=== PATIENT | female | born 1955 | race Caucasian/White ===

== ENCOUNTER → 2016-03-22 | Outpatient (CLI) | payer BC ==
--- NOTE | 2016-03-23 10:36 | MM ---
Reason for exam: screening (asymptomatic). Last mammogram was performed 1 year ago. History: Patient is postmenopausal, has history of other cancer at age 55, has history of endometrial cancer at age 45, has history of ovarian cancer at age 45, and is nulliparous. Family history of breast cancer in sister at age 56. Took estrogen for 3 years 6 months beginning at age 45. Physical Findings: A clinical breast exam by your physician is recommended on an annual basis and results should be correlated with mammographic findings. MG Screening Mammo w CAD Bilateral CC and MLO view(s) were taken. Prior study comparison: March 14, 2015, bilateral MG screening mammo w CAD. February 26, 2014, bilateral MG screening mammo w CAD. February 19, 2013, bilateral digital screening mammo w/CAD. There are scattered fibroglandular densities. Finding: There are typically benign round calcifications in both breasts. There is no discrete abnormality. ASSESSMENT: Benign, BI-RAD 2 RECOMMENDATION: Routine screening mammogram of both breasts in 1 year.
== END | disposition home or self-care (01) ==
LOC: RADMAMWWP 12:20
PROVIDERS: ATTEND Family Medicine
DX: Z12.31 Encounter for screening mammogram for malignant neoplasm of breast (principal)

== ENCOUNTER → 2016-03-30 | Outpatient (CLI) | payer BC ==
[~2016-03-30] MED LIST: ATROPINE SULFATE 0.1 MG/ML 10ML SYRINGE ONE; DOBUTamine DRIP for NUC MED 500 MG in DEXTROSE/WATER 1 250ML.BAG IV ONE; METOPROLOL TARTRATE 5 MG/5 ML VIAL IVP ONE
--- NOTE | 2016-03-30 10:25 | ECHOS ---
DATE OF SERVICE: 03/30/2016 AGE: 61Y SEX: F HT: 5'3" WT: 182 lbs. Protocol Erwin: Others: Dobutamine Stress Echo Stage: Dur. of Exercise: *Heart Rate Blood Pressure *Rest: 88 Rest: 110/69 * *Max. Achieved: 139 Maximum BP: 204/54 85% PMHR: 134 100% PMHR: 158 *METS: INDICATIONS OF THE STUDY: Chest pain. MEDICATIONS: STRESS DATA: Pre-testing physical examination showed heart rate of 88, pressure is 110/69 mmHg. Baseline EKG showed sinus mechanism with nonspecific changes in the inferior leads and inferolateral leads. Dobutamine infusion at a dose of 10 mcg/kg per minute was started and increased to 20 mcg/kg per minute per protocol. We gave the patient 0.5 mg of atropine to enhance the heart rate. With the dobutamine and atropine, the patient achieved a max heart rate of 139, which is about 89% of maximum predicted heart rate. Maximum blood pressure was 204/54 mmHg. Clinically, the patient did not experience any symptoms of chest pain or discomfort during the testing or in the recovery period. The EKG showed about [address] segment changes. The changes resolved on recovery. ECHOCARDIOGRAM IMAGES: On echocardiogram images from parasternal long axis view, parasternal short axis view, apical 4 chamber view and apical 2 chamber view were obtained at baseline images, at low-dose dobutamine infusion, at peak heart rate, as well as on recovery. I could not see any evidence of wall motion abnormalities consistent with ischemia. CONCLUSION: 1. Mild EKG changes in response to dobutamine, did not meet the criteria for ischemia and consistent of [address] segment changes likely represents the ( ) of the baseline EKG changes. 2. There is no evidence of any wall motion abnormalities consistent with ischemia.
== END ==
LOC: RADNMMAIN 08:51
PROVIDERS: ATTEND Surgery
DX: R91.8 Other nonspecific abnormal finding of lung field (principal)
CPT/HCPCS: 93017; 93350; J1250

== ENCOUNTER 2016-07-06 12:55 | Day surgery (SDC) | payer BC ==
[2016-07-04 08:53] VITALS: BMI 28.1
--- NOTE | 2016-07-06 08:00 | P.GSHP ---
History of Present Illness H&P Date: 07/06/16 CHIEF COMPLAINT: Lung cancer HISTORY OF PRESENT ILLNESS: The patient is a 61-year-old male diagnosed with lung cancer. She needs a Mediport placement for chemotherapy. PAST MEDICAL HISTORY: See list PAST SURGICAL HISTORY: See list CURRENT MEDICATIONS: See list. ALLERGIES: See list. SOCIAL HISTORY: No active tobacco or alcohol use. FAMILY HISTORY: Noncontributory. REVIEW OF ORGAN SYSTEMS: CONSTITUTIONAL: Has weight loss. PHYSICAL EXAMINATION: Vital signs: Stable GENERAL: Well developed and in no acute distress. Pleasant. HEENT: No sclera icterus. Extraocular movements grossly intact. Moist buccal mucosa. Head is atraumatic, normocephalic. Hears conversational speech. No nasal drainage. NECK: Supple without lymphadenopathy. No JV distention. CHEST: Non-labored respirations and equal bilateral excursions. Has chest tube , right side. CARDIOVASCULAR: Regular rate and rhythm. Palpable 2+ radial pulses. ABDOMEN: Nontender. MUSCULOSKELETAL: No clubbing, cyanosis or edema. NEUROLOGIC: No focal or lateralizing signs. PSYCH: Appropriate affect. Alert and oriented to person, place and time. ASSESSMENT: 1. Lung cancer, left. 2. Need for chemotherapeutic access. PLAN: 1. Agree with Port-A-Cath placement. Past Medical History Past Medical History: Cancer, Deep Vein Thrombosis (DVT), Hyperlipidemia, Hypertension, Pulmonary Embolus (PE), Rheumatoid Arthritis (RA) Additional Past Medical History / Comment(s): lung cancer, PE/DVT 2002, hx vaginal cancer, anemia, currently getting chemo for lung cancer, hx ovarian and cervical cancer, uses oxygen at night History of Any Multi-Drug Resistant Organisms: None Reported Past Surgical History: Hysterectomy, Orthopedic Surgery Additional Past Surgical History / Comment(s): drainage tube under rt breast for lung, ileostomy, left shoulder rotator cuff, vaginal surgery for cancer/ volvectomy, lung biopsy, Past Anesthesia/Blood Transfusion Reactions: No Reported Reaction Past Psychological History: No Psychological Hx Reported Smoking Status: Never smoker Past Alcohol Use History: Rare Past Drug Use History: None Reported - Past Family History Sister(s) Family Medical History: Cancer Medications and Allergies Home Medications Medication Instructions Recorded Confirmed Type Acetaminophen-Codeine 300-30mg 1 - 2 tab PO Q4-6H PRN 07/04/16 07/04/16 History [Tylenol #3] Atenolol [Tenormin] 50 mg PO 1700 07/04/16 07/04/16 History Cyanocobalamin [Vitamin B-12] 1,000 mcg PO DAILY 07/04/16 07/04/16 History Ezetimibe/Simvastatin [Vytorin 1 tab PO 1700 07/04/16 07/04/16 History 10-20 mg Tablet] Gabapentin [Neurontin] 100 mg PO BID 07/04/16 07/04/16 History LORazepam [Ativan] 0.5 - 1 mg PO Q4-6H PRN 07/04/16 07/04/16 History Losartan/Hydrochlorothiazide 1 each PO QAM 07/04/16 07/04/16 History [Hyzaar 50-12.5 Tablet] Multivitamins, Thera [Multivitamin 1 tab PO DAILY 07/04/16 07/04/16 History (formulary)] Allergies Allergy/AdvReac Type Severity Reaction Status Date / Time Sulfa (Sulfonamide Allergy Rash/Hives Verified 07/04/16 08:39 Antibiotics)
[~2016-07-06 12:55] MED LIST changes: -ATROPINE SULFATE 0.1 MG/ML 10ML SYRINGE ONE; +DEXAMETHASONE SOD PHOSPHATE 10 MG/ML 1 ML VIAL IV ONE; -DOBUTamine DRIP for NUC MED 500 MG in DEXTROSE/WATER 1 250ML.BAG IV ONE; +HYDROmorphone 1 MG/ML 1 ML SYRINGE IVP PRN; +LACTATED RINGERS 1,000 ML IV SCH; -METOPROLOL TARTRATE 5 MG/5 ML VIAL IVP ONE; +MIDAZOLAM 2 MG/2 ML VIAL IV PRN; +ONDANSETRON 4 MG/2 ML VIAL IVP ONE; +SCOPOLAMINE 1.5MG/72HR PATCH TRANSDERM ONE; +ceFAZolin 2 GM in SODIUM CHLORIDE 0.9% 100 ML IVPB ONE
[2016-07-06 13:34] VITALS: RESP 16; TEMP 986
[2016-07-06] MEDS ORDERED: LIDOCAINE 1% 20 ML VIAL (10MG/ML) FOR IV START INTRADERMA ONE (13:42)
[2016-07-06] MEDS ORDERED: LIDOCAINE 1% INJ 10MG/ML (20 ML MDV) ONE (16:27)
[2016-07-06] MEDS ORDERED: fentaNYL (PF) 50 MCG/ML 2 ML AMP ONE (16:27)
[2016-07-06] MEDS ORDERED: PROPOFOL 10 MG/ML 20 ML VIAL IV ONE (16:27)
[2016-07-06] MEDS ORDERED: KETAMINE 10 MG/ML 20 ML VIAL ONE (16:27)
[2016-07-06] MEDS ORDERED: MIDAZOLAM 2 MG/2 ML VIAL ONE (16:27)
[2016-07-06] MEDS ORDERED: HEPARIN SODIUM,PORCINE 100 UNIT/ML 5 ML VIAL IV ONE (16:51)
[2016-07-06] MEDS ORDERED: HEPARIN SODIUM,PORCINE 10,000 UNIT/ML 1 ML VIAL IV ONE (16:52)
[2016-07-06] MEDS ORDERED: LIDOCAINE (PF) 10 MG/ML 2 ML VIAL SQ ONE (16:52)
--- NOTE | 2016-07-06 17:27 | P.OP ---
Date of Procedure: 07/06/16 Preoperative Diagnosis: Postoperative Diagnosis: Procedure(s) Performed: Implants: Indications for Procedure: Operative Findings: Description of Procedure: SURGEON: BECKY JAVIER MD FAMILY PROTECTION SPECIALIST: None. PREOPERATIVE DIAGNOSES: 1. History of lung cancer, right. 2. Need for chemotherapeutic access. 3. Personal history of right thoracostomy tube. POSTOPERATIVE DIAGNOSES: 1. History of lung cancer, right. 2. Need for chemotherapeutic access. 3. Personal history of right thoracostomy tube. PROCEDURES PERFORMED: 1. Ultrasound guided central venous access of the right internal jugular venous vein. 2. Fluoroscopic guidance for central venous access right internal jugular vein 5 seconds. 3. Placement of right internal jugular power port 6 Slovenian by Bard. ANESTHESIA: IV sedation with 20 mL 1% lidocaine. ESTIMATED BLOOD LOSS: 5 mL. SPECIMENS REMOVED: None. COMPLICATIONS: None. INDICATIONS: The patient is a 61-year-old female with lung cancer. She presents for chemotherapeutic access. Benefits and risks of surgical intervention were described including bleeding, infection, mechanical problems with his port. Informed consent was obtained. DESCRIPTION OR PROCEDURE: Patient was brought into the operating room, laid in supine position. After adequate IV sedation, the chest and right neck were prepped and draped in a standard sterile fashion including the shoulder with ChloraPrep. Timeout protocol was confirmed with the surgical team regarding the patient's name, procedure to be performed including preoperative medications for which she received IV antibiotics. Bilateral SCDs were placed. An ultrasound was used to capture views of the right internal jugular vein including right carotid artery, which was patent and without thrombus along its course. The right IJ was then localized using anesthetic for the skin. A 16 Slovenian needle was used to access the IJ. Threading was without difficultly as the needle was advanced into the IJ with dark nonpulsatile venous blood. A J-wire was placed under fluoroscopic guidance. Two fingerbreadths distal to the clavicle, on the lateral third, a transverse 1.5 to 2 cm incision was deepened into the skin after localizing the skin. A pocket was created for the port. The port on the back table was flushed with heparinized saline and then attached to the catheter tubing. An adapter was fastened to the actual port site over the tubing. The port easily had fit snug into the pocket. A subcutaneous tunneler was placed along the open end of the tubing and brought out through the separate stab incision. Fluoroscopic guidance confirmed no kinking along the tubing and the port site. Next, the J-wire was exchanged for a catheter sheath for which the tubing was cut to 18 cm and then advanced through the catheter sheath. The Peel-away sheath was then removed and the tubing was secured at the junction of the superior vena cava as well as the right atrium. This was all done under fluoroscopic guidance for a total of 5 seconds. Easy pullback as well as return and aspiration was obtained of the port site. The skin incision was closed using layers using 3-0 Vicryl for the subcu followed by 4-0 Monocryl in a running subcuticular fashion. At the stick site this was also reapproximated using 4-0 Monocryl. The incisions were covered with gauze and CHG Tegaderm. A total of 20 mL of local anesthetic was placed. At the end of the procedure, needle, sponge, and instrument count was verified correct by ophthalmic surgical assistant. Heparin lock of 5 mL was placed. The patient was awoken and pain free and taken to the second stage postanesthesia care unit. The patient tolerated the procedure well. FINDINGS: 1. No thrombus encountered along the right carotid artery or internal jugular vein. 2. Access of the right internal jugular vein under ultrasound guidance. 3. Fluoroscopy of 5 seconds. 4. Final fluoroscopic image confirmed no mechanical kink of the port site or at the junction at the skin puncture site. Plan - Discharge Summary Discharge Medication List Acetaminophen-Codeine 300-30mg [Tylenol #3] 1 - 2 tab PO Q4-6H PRN 07/04/16 [ History] Atenolol [Tenormin] 50 mg PO 169907/04/16 [History] Cyanocobalamin [Vitamin B-12] 1,000 mcg PO DAILY 07/04/16 [History] Ezetimibe/Simvastatin [Vytorin 10-20 mg Tablet] 1 tab PO 169907/04/16 [History] Gabapentin [Neurontin] 100 mg PO BID 07/04/16 [History] LORazepam [Ativan] 0.5 - 1 mg PO Q4-6H PRN 07/04/16 [History] Losartan/Hydrochlorothiazide [Hyzaar 50-12.5 Tablet] 1 each PO QAM 07/04/16 [ History] Multivitamins, Thera [Multivitamin (formulary)] 1 tab PO DAILY 07/04/16 [History ] Follow up Appointment(s)/Referral(s): Becky Javier MD [STAFF PHYSICIAN] - As Needed Patient Instructions/Handouts: Implanted Venous Access Port (GEN), How to Care for Your Implanted Venous Access Port (GEN) Activity/Diet/Wound Care/Special Instructions: REMOVE DRESSING BY 07/10/16. MAY SHOWER. Discharge Disposition: HOME SELF-CARE
--- NOTE | 2016-07-06 17:54 | XR ---
EXAMINATION TYPE: XR chest 1V confirm line [facility] DATE OF EXAM: 07/06/2016 5:47 PM COMPARISON: NONE INDICATION: Port placement TECHNIQUE: Single frontal view of the chest is obtained. FINDINGS: The heart size is normal. The pulmonary vasculature is normal. There is a small right pleural effusion. Some mild increased lung markings are on the left and right lungs. Correlate for pulmonary edema. Other etiologies are not excluded. Port is present on the right with the tip in the superior vena cava region. IMPRESSION: 1. No pneumothorax post right-sided port placement. Tip is in the proximal superior vena cava region. 2. Small right pleural effusion. 3. Clinical correlation recommended for early alveolar pulmonary edema.
--- NOTE | 2016-07-06 17:57 | FL ---
Fluoroscopy INDICATION: Pain FINDINGS: Fluoroscopy time: 1 seconds. Images obtained: 2. IMPRESSIONS: 1. Documentation of fluoroscopy.
[2016-07-06 18:05] VITALS: BP 130/76; PULSE 97
== END 2016-07-06 18:20 | disposition home or self-care (01) ==
LOC: OR 12:55
PROVIDERS: ATTEND Surgery Plastic and Reconstructive Surgery
DX: C34.91 Malignant neoplasm of unspecified part of right bronchus or lung (principal); E78.5 Hyperlipidemia, unspecified; I10 Essential (primary) hypertension; M06.9 Rheumatoid arthritis, unspecified; Z86.718 Personal history of other venous thrombosis and embolism; Z86.711 Personal history of pulmonary embolism; Z99.81 Dependence on supplemental oxygen; Z79.899 Other long term (current) drug therapy; Z88.2 Allergy status to sulfonamides
CPT/HCPCS: 77001; 36561; 76937; C1788; J2250; J2001 ×2; J1644; J1642; J1100; J0690; J2405; J3010; J2704

== ENCOUNTER → 2016-10-15 | Outpatient (CLI) | payer BC ==
[2016-10-15 08:24] LABS: Blood Urea Nitrogen 17 mg/dL (7-17); Non-African American GFR(MDRD) >60 (>60 ml/min/1.73 sqM)
--- NOTE | 2016-10-15 10:12 | CT ---
EXAMINATION TYPE: CT ChestAbdPelvis w con DATE OF EXAM: 10/15/2016 INDICATION: F/U Lung and Vulva CA, history of skin cancer COMPARISON: NONE CT DLP: 647.9 mGycm CONTRAST: Performed with Oral Contrast and with IV Contrast, patient injected with 100 mL of Omnipaque 300. TECHNIQUE: Axial images at 5 mm thick sections. Reconstructed images in the coronal plane. Delayed images through the kidneys. FINDINGS: CT CHEST: Portion of the thyroid visualized is normal. Small right and minimal left pleural effusion is present. There is diffuse infiltrates at the lung ba ses greater on the right. Atelectasis and pneumonia are within the differential. Underlying metastati c lesions are not excluded. There is a drainage catheter present within the right pleural cavity. No enlarged mediastinal or hilar adenopathy is evident. There is some shotty lymphadenopathy within t he superior mediastinum and pretracheal space. The ascending aorta diameter at the level of the main pulmonary artery is 3.3 cm. The main pulmonary artery diameter at the bifurcation is 2.[address] ABDOMEN: Liver: Normal Spleen: Normal Pancreas: Normal Adrenal glands: The adrenal glands are normal. Gallbladder: Normal Kidneys: No masses are evident. No hydronephrosis is present. Right ureter has some minimal prominen ce. No cysts are present. Delayed images were obtained through the kidneys, which remain unremarkabl e. Aorta: Vascular calcification is within the aorta. Inferior vena cava: Normal. There is a urostomy in the right upper anterior pelvis. CT PELVIS: Loops of bowel within the abdomen and pelvis are normal. There are loops of bowel which are incom pletely distended or lack oral contrast limiting their evaluation. Appendix: Normal as visualized. Urinary bladder: Absent. Small bowel urostomy appears to be present. Genitourinary structures: Uterus and ovaries are absent. Vaginal region is not well visualized. Osseous structures: Possible sclerotic metastasis is within the posterior medial right iliac wing mario suring 0.8 cm. Series 4 image 88. Smaller sclerotic areas within the contralateral left side. An melvin tional lesion is in the superior medial right iliac wing. Series 4 image 83. Note is made of facet de generative changes. There is a large sclerotic area on the superior right endplate of L5. L4 scleroti c metastasis is present. L3 sclerotic metastasis is present. L2 sclerotic metastasis is present. A ly tic area with sclerotic margins is within the L1 vertebral level anteriorly. Multiple additional smal l sclerotic metastases are within the lower thoracic spine. There is a possible metastatic lesion wit hin the posterior right greater trochanter. There is degenerative change of the sacroiliac joints. IMPRESSIONS: 1. Multiple sclerotic type metastases through the lumbar spine with some milder areas within the thor acic spine greater in the lower thoracic spine. 2. Small right and minimal left pleural effusion. Drainage catheters in the right pleural cavity. 3. Postsurgical changes with urostomy right lower quadrant.
== END ==
LOC: RADCTMAIN 07:12
PROVIDERS: ATTEND Internal Medicine Hematology & Oncology
DX: C79.49 Secondary malignant neoplasm of other parts of nervous system (principal); J91.0 Malignant pleural effusion
CPT/HCPCS: 82565; 84520; 71260; 74177; Q9967; J1642

== ENCOUNTER 2016-12-19 20:50 | Inpatient (IN) | payer BC ==
[2016-12-19] MEDS ORDERED: RX INFO: IV CONTRAST WAS GIVEN 1 EACH MISC MISCELLANE PRN (21:32)
--- NOTE | 2016-12-19 21:50 | ED ---
General Adult HPI - General Chief complaint: Shortness of Breath Stated complaint: Poss blood clots Time Seen by Provider: 12/19/16 21:07 Source: patient, RN notes reviewed, old records reviewed Mode of arrival: wheelchair Limitations: no limitations - History of Present Illness Initial comments: 61-year-old female presents with 1 week of worsening dyspnea. Patient had recent diagnosis of lung cancer, completed chemotherapy in August of this year. Patient states that over the past week she has had increased difficulty breathing and cough. Cough was initially productive of clear sputum which has progressed to ayon sputum. Patient denies fever or chills. Does complain of unilateral leg swelling. This has been present for several years. Patient was called by her physician at [facility] with CT evidence of a blood clot in her leg and pelvis. These records will be obtained. Patient denies chest pain. She denies runny nose or throat pain. Denies abdominal pain. Denies nausea vomiting. - Related Data Home Medications Medication Instructions Recorded Confirmed Acetaminophen-Codeine 300-30mg 1 - 2 tab PO Q4-6H PRN 07/04/16 12/19/16 [Tylenol #3] Atenolol [Tenormin] 50 mg PO HS 07/04/16 12/19/16 Ezetimibe/Simvastatin [Vytorin 1 tab PO HS 07/04/16 12/19/16 10-20 mg Tablet] LORazepam [Ativan] 0.5 - 1 mg PO Q4-6H PRN 07/04/16 12/19/16 Losartan/Hydrochlorothiazide 1 tab PO DAILY 07/04/16 12/19/16 [Hyzaar 50-12.5 Tablet] Multivitamins, Thera [Multivitamin 1 tab PO DAILY 07/04/16 12/19/16 (formulary)] Gabapentin [Neurontin] 600 mg PO TID 12/19/16 12/19/16 Magnesium(Unknown Dose) 1 tab PO BID 12/19/16 12/19/16 Vitamin B Complex 1 cap PO BID 12/19/16 12/19/16 Zinc 50 mg PO DAILY 12/19/16 12/19/16 Allergies Allergy/AdvReac Type Severity Reaction Status Date / Time Sulfa (Sulfonamide Allergy Rash/Hives Verified 12/19/16 22:10 Antibiotics) Review of Systems ROS Statement: Those systems with pertinent positive or pertinent negative responses have been documented in the HPI. ROS Other: All systems not noted in ROS Statement are negative. Past Medical History Past Medical History: Cancer, Deep Vein Thrombosis (DVT), Hyperlipidemia, Hypertension, Pulmonary Embolus (PE), Rheumatoid Arthritis (RA) Additional Past Medical History / Comment(s): lung cancer, PE/DVT 2002, hx vaginal cancer, anemia, hx ovarian and cervical cancer, uses oxygen at night History of Any Multi-Drug Resistant Organisms: None Reported Past Surgical History: Hysterectomy, Orthopedic Surgery Additional Past Surgical History / Comment(s): drainage tube under rt breast for lung, ileostomy, left shoulder rotator cuff, vaginal surgery for cancer/ volvectomy, lung biopsy, Past Anesthesia/Blood Transfusion Reactions: No Reported Reaction Past Psychological History: No Psychological Hx Reported Smoking Status: Never smoker Past Alcohol Use History: Rare Past Drug Use History: None Reported - Past Family History Sister(s) Family Medical History: Cancer General Exam Limitations: no limitations General appearance: alert, in no apparent distress Head exam: Present: atraumatic, normocephalic Eye exam: Present: normal appearance, PERRL ENT exam: Present: normal exam Neck exam: Present: normal inspection. Absent: tenderness, meningismus Respiratory exam: Present: respiratory distress (Moderate respiratory distress) , rhonchi (Started rhonchi, good air entry). Absent: wheezes, rales Cardiovascular Exam: Present: regular rate, normal rhythm GI/Abdominal exam: Present: soft. Absent: distended, tenderness Extremities exam: Present: normal inspection, pedal edema (Left lower extremity swelling, with trace pitting edema), other. Absent: calf tenderness Neurological exam: Present: alert, oriented X3, CN II-XII intact. Absent: motor sensory deficit Psychiatric exam: Present: normal affect, normal mood Skin exam: Present: warm, dry, intact. Absent: cyanosis, diaphoretic Course Vital Signs 12/19/16 12/19/16 12/19/16 20:57 21:41 22:55 Temperature 99.3 F Pulse Rate 87 87 86 Respiratory 20 18 16 Rate Blood Pressure 108/59 95/51 O2 Sat by Pulse 88 L 97 97 Oximetry EKG Findings - EKG Comments: EKG Findings:: EKG shows normal sinus rhythm, ventricular rate 85, KS interval 170, QRS duration 76, QTC [address] segment elevation or T wave inversion in V2 and V3 Medical Decision Making - Medical Decision Making 61-year-old female presenting with 1 week worsening dyspnea and productive cough. He was able to talk with Dr. Briones at [facility]. She states that patient's case was reviewed at tumor Board, they felt there may be a DVT in the femoral vein is from a computed tomography scan in September. Given the worsening dyspnea it was recommended the patient come in for evaluation of pulmonary embolism. CT angiography was obtained, this is negative for pulmonary embolism, shows extensive pulmonary infiltrates, concern for ARDS. Patient's vital signs remained stable, she does require supplemental oxygen. Patient's diagnosis was cancer with metastases to lung. Chemotherapy was completed in July of this year. Computed tomography scan findings, may be related to pneumonia, although there is some concern this could be recurrent cancer. Patient will be admitted on IV antibiotics and steroids. Pulmonology and oncology will be placed on consult. Diagnosis: Bilateral extensive pulmonary infiltrates with hypoxia. - Lab Data Result diagrams: 12/19/16 22:16 12/19/16 22:16 Lab Results 12/19/16 12/19/16 12/19/16 Range/Units 22:16 22:16 22:16 WBC 5.6 (3.8-10.6) k/uL RBC 3.70 L (3.80-5.40) m/uL Hgb 11.9 (11.4-16.0) gm/dL Hct 38.8 (34.0-46.0) % MCV 104.9 H (80.0-100.0) fL MCH 32.0 (25.0-35.0) pg MCHC 30.6 L (31.0-37.0) g/dL RDW 13.3 (11.5-15.5) % Plt Count 170 (150-450) k/uL Neutrophils % 77 % Lymphocytes % 13 % Monocytes % 8 % Eosinophils % 1 % Basophils % 0 % Neutrophils # 4.3 (1.3-7.7) k/uL Lymphocytes # 0.7 L (1.0-4.8) k/uL Monocytes # 0.4 (0-1.0) k/uL Eosinophils # 0.0 (0-0.7) k/uL Basophils # 0.0 (0-0.2) k/uL Hypochromasia Slight Macrocytosis Slight PT 10.7 (9.0-12.0) sec INR 1.1 (<1.2) APTT 23.4 (22.0-30.0) sec Sodium 136 L (137-145) mmol/L Potassium 3.7 (3.5-5.1) mmol/L Chloride 96 L (98-107) mmol/L Carbon Dioxide 30 (22-30) mmol/L Anion Gap 10 mmol/L BUN 14 (7-17) mg/dL Creatinine 1.00 (0.52-1.04) mg/dL Est GFR (MDRD) Af Amer >60 (>60 ml/min/1.73 sqM) Est GFR (MDRD) Non-Af 56 (>60 ml/min/1.73 sqM) Glucose 101 H (74-99) mg/dL Plasma Lactic Acid Alex (0.7-2.0) mmol/L Calcium 9.4 (8.4-10.2) mg/dL Magnesium 2.2 (1.6-2.3) mg/dL Total Bilirubin 0.4 (0.2-1.3) mg/dL AST 38 H (14-36) U/L ALT 37 (9-52) U/L Alkaline Phosphatase 108 (38-126) U/L Total Creatine Kinase (30-135) U/L CK-MB (CK-2) (0.0-2.4) ng/mL CK-MB (CK-2) Rel Index Troponin I (0.000-0.034) ng/mL Total Protein 6.7 (6.3-8.2) g/dL Albumin 3.8 (3.5-5.0) g/dL 12/19/16 12/19/16 Range/Units 22:16 22:16 WBC (3.8-10.6) k/uL RBC (3.80-5.40) m/uL Hgb (11.4-16.0) gm/dL Hct (34.0-46.0) % MCV (80.0-100.0) fL MCH (25.0-35.0) pg MCHC (31.0-37.0) g/dL RDW (11.5-15.5) % Plt Count (150-450) k/uL Neutrophils % % Lymphocytes % % Monocytes % % Eosinophils % % Basophils % % Neutrophils # (1.3-7.7) k/uL Lymphocytes # (1.0-4.8) k/uL Monocytes # (0-1.0) k/uL Eosinophils # (0-0.7) k/uL Basophils # (0-0.2) k/uL Hypochromasia Macrocytosis PT (9.0-12.0) sec INR (<1.2) APTT (22.0-30.0) sec Sodium (137-145) mmol/L Potassium (3.5-5.1) mmol/L Chloride (98-107) mmol/L Carbon Dioxide (22-30) mmol/L Anion Gap mmol/L BUN (7-17) mg/dL Creatinine (0.52-1.04) mg/dL Est GFR (MDRD) Af Amer (>60 ml/min/1.73 sqM) Est GFR (MDRD) Non-Af (>60 ml/min/1.73 sqM) Glucose (74-99) mg/dL Plasma Lactic Acid Alex 1.1 (0.7-2.0) mmol/L Calcium (8.4-10.2) mg/dL Magnesium (1.6-2.3) mg/dL Total Bilirubin (0.2-1.3) mg/dL AST (14-36) U/L ALT (9-52) U/L Alkaline Phosphatase (38-126) U/L Total Creatine Kinase 80 (30-135) U/L CK-MB (CK-2) 5.3 H* (0.0-2.4) ng/mL CK-MB (CK-2) Rel Index 6.6 Troponin I <0.012 (0.000-0.034) ng/mL Total Protein (6.3-8.2) g/dL Albumin (3.5-5.0) g/dL Disposition Clinical Impression: Healthcare-associated pneumonia, Atypical pneumonia Disposition: ADMITTED IP TO THIS [facility] Condition: Stable Referrals: Inder Greco MD [Primary Care Provider] - 1-2 days Decision to Admit Reason: Admit from EC Decision Date: 12/19/16 Decision Time: 23:38
[2016-12-19 22:38] LABS: Basophils % (A) 0 %; CH 32.4; Eosinophils % (A) 1 %; HCT 38.8 % (34.0-46.0); HDW 2.52; HGB 11.9 gm/dL (11.4-16.0); Hypochromasia Slight; Luc % (Auto) 2; Lymphocytes # (A) 0.7 k/uL (1.0-4.8); Lymphocytes % (A) 13 %; MCHC 30.6 g/dL (31.0-37.0); MCV 104.9 fL (80.0-100.0); Macrocytosis Slight; Mean Platelet Volume 7.8; Monocytes # (A) 0.4 k/uL (0-1.0); Monocytes % (A) 8 %; Neutrophils # (A) 4.3 k/uL (1.3-7.7); Neutrophils % (A) 77 %; RDW 13.3 % (11.5-15.5); WBC 5.6 k/uL (3.8-10.6); WBC (Perox) 5.88
[2016-12-19 22:46] LABS: INR 1.1 (<1.2); Partial Thromboplastin Time 23.4 sec (22.0-30.0); Prothrombin Time 10.7 sec (9.0-12.0)
[2016-12-19 22:52] LABS: ALT 37 U/L (9-52); AST 38 U/L (14-36); Alkaline Phosphatase 108 U/L (38-126); Anion Gap 10 mmol/L; Blood Urea Nitrogen 14 mg/dL (7-17); Calcium 9.4 mg/dL (8.4-10.2); Carbon Dioxide 30 mmol/L (22-30); Chloride 96 mmol/L (98-107); Glucose 101 mg/dL (74-99); Magnesium 2.2 mg/dL (1.6-2.3); Non-African American GFR(MDRD) 56 (>60 ml/min/1.73 sqM); Potassium 3.7 mmol/L (3.5-5.1); Sodium 136 mmol/L (137-145); Total Bilirubin 0.4 mg/dL (0.2-1.3); Total Protein 6.7 g/dL (6.3-8.2)
[2016-12-19 22:58] LABS: Creatine Kinase 80 U/L (30-135)
[2016-12-19] MEDS: SODIUM CHLORIDE 0.9% 1,000 ML IV SCH (23:08)
[2016-12-19 23:11] LABS: Troponin I <0.012 ng/mL (0.000-0.034)
--- NOTE | 2016-12-19 23:12 | CT ---
EXAMINATION TYPE: CT angio chest DATE OF EXAM: 12/19/2016 11:05 PM COMPARISON: NONE HISTORY: R/O PE, FREDDIE CT DLP: 163.20 mGycm Automated exposure control for dose reduction was used. CONTRAST: CTA scan of the thorax is performed with IV Contrast, patient injected with 60 mL of Omnipaque 350, p ulmonary embolism protocol. There are 3-D post processed images.. FINDINGS: There are bilateral pleural effusions. There is extensive reticular nodular infiltrates throughout th e lungs. I see no filling defects in the pulmonary arteries. There is no evidence of aortic dissectio n. Heart appears slightly enlarged. There is spurring in the thoracic spine. IMPRESSION: NO EVIDENCE OF PULMONARY EMBOLISM. BILATERAL PLEURAL EFFUSION WITH EXTENSIVE PULMONARY INFILTRATES. T HERE IS COALESCENT PULMONARY INFILTRATE IN BOTH LUNGS. THERE IS SIGNIFICANT PROGRESSION OF THE AIRSPA CE DISEASE COMPARED TO LAST EXAM OF 10/15/2016. THIS PROBABLY RELATES TO INFLAMMATORY DISEASE. CONSIDE R THE POSSIBILITY OF RDS.
[2016-12-19 23:14] LABS: Creatine Kinase MB 5.3 ng/mL (0.0-2.4)
[2016-12-19] MEDS ORDERED: NALOXONE 0.4 MG/ML 1 ML VIAL IV PRN (23:48)
[2016-12-19] MEDS ORDERED: IPRATROPIUM-ALBUTEROL 3 ML NEB INHALATION PRN (23:51)
[2016-12-20 00:30] VITALS: BMI 25.4
[2016-12-20] MEDS ORDERED: LEVOFLOXACIN 250MG-D5W PMX 500 MG in DEXTROSE/WATER 1 50ML.BAG IVPB SCH (01:00)
[2016-12-20] MEDS ORDERED: LEVOFLOXACIN 500MG-D5W PMX 500 MG in DEXTROSE/WATER 1 100ML.BAG IVPB SCH (01:00)
[2016-12-20] MEDS: PIPERACILLIN-TAZOBACTAM 3.375 GM in DEXTROSE/WATER 1 50ML.BAG IVPB SCH ×2 (07:49→16:33)
[2016-12-20] MEDS: predniSONE 50 MG TAB PO SCH (08:01)
[2016-12-20] MEDS: Acetaminophen-Codeine 300-30mg TAB PO PRN ×2 (08:03→22:24)
[2016-12-20 08:29] LABS: Basophils % (A) 0 %; CH 32.7; CHCM 31.8; Eosinophils % (A) 0 %; HCT 38.9 % (34.0-46.0); HDW 2.59; HGB 12.4 gm/dL (11.4-16.0); Hypochromasia Slight; Luc % (Auto) 2; Lymphocytes # (A) 0.6 k/uL (1.0-4.8); Lymphocytes % (A) 12 %; MCH 32.9 pg (25.0-35.0); MCHC 31.9 g/dL (31.0-37.0); MCV 103.2 fL (80.0-100.0); Macrocytosis Slight; Mean Platelet Volume 7.4; Monocytes # (A) 0.4 k/uL (0-1.0); Monocytes % (A) 9 %; Neutrophils # (A) 3.8 k/uL (1.3-7.7); Neutrophils % (A) 77 %; RBC 3.77 m/uL (3.80-5.40); RDW 13.7 % (11.5-15.5); WBC 4.9 k/uL (3.8-10.6); WBC (Perox) 5.12
[2016-12-20 08:46] LABS: ALT 26 U/L (9-52); AST 42 U/L (14-36); Alkaline Phosphatase 97 U/L (38-126); Anion Gap 13 mmol/L; Blood Urea Nitrogen 11 mg/dL (7-17); Calcium 9.5 mg/dL (8.4-10.2); Carbon Dioxide 27 mmol/L (22-30); Chloride 100 mmol/L (98-107); Glucose 86 mg/dL (74-99); Non-African American GFR(MDRD) >60 (>60 ml/min/1.73 sqM); Potassium 3.9 mmol/L (3.5-5.1); Sodium 140 mmol/L (137-145); Total Bilirubin 0.5 mg/dL (0.2-1.3); Total Protein 6.8 g/dL (6.3-8.2)
--- NOTE | 2016-12-20 09:06 | US ---
EXAMINATION TYPE: US venous doppler duplex LE LT DATE OF EXAM: 12/20/2016 7:03 AM COMPARISON: none CLINICAL HISTORY: possible DVT, history of DVT left leg SIDE PERFORMED: left TECHNIQUE: The lower extremity deep venous system is examined utilizing real time linear array sonog nima with graded compression, doppler sonography and color-flow sonography. VESSELS IMAGED: External Iliac Vein (EIV) Common Femoral Vein Deep Femoral Vein Greater Saphenous Vein * Femoral Vein Popliteal Vein Small Saphenous Vein * Proximal Calf Veins (* superficial vessels) Pitting edema, swelling in leg, vessels difficult to visualize. Left Leg: Thready flow from femoral v, through proximal calf v's, vessel small and not compressible from femoral v to proximal calf v's. Positive for DVT. IMPRESSION: 1. There is reduced flow involving the left lower extremity from the superficial femoral vein through the proximal calf veins reduced compressibility compatible with DVT. Findings may represent a compon ent of chronic DVT. Superimposed acute DVT in the differential diagnosis.
[2016-12-20] MEDS ORDERED: RX INFO: IV CONTRAST WAS GIVEN 1 EACH MISC MISCELLANE PRN (09:25)
[2016-12-20] MEDS ORDERED: LORazepam 0.5 MG TAB PO PRN (09:43)
[2016-12-20] MEDS: GABAPENTIN 300 MG CAP PO SCH ×3 (11:36→22:19)
[2016-12-20] MEDS: LOSARTAN-HCTZ 50-12.5 MG 1 EACH TAB PO SCH (11:36)
[2016-12-20] MEDS: ENOXAPARIN 60 MG/0.6 ML SYRINGE SQ SCH ×2 (16:32→22:18)
[2016-12-20] MEDS: SODIUM CHLORIDE 0.9% 1,000 ML IV SCH (16:32)
--- NOTE | 2016-12-20 16:56 | P.HPIM ---
History of Present Illness H&P Date: 12/20/16 Chief Complaint: Shortness of breath This is 61-year-old pleasant female patient of Dr. Maurice Greco. She recently was diagnosed to have metastatic lung carcinoma in May 14 this year after a tissue biopsy performed by Dr. Mendoza and Dr. Henderson surgeon at [facility]. He had a pulmonary nodule that comes and goes with size and repeat CAT scans were not significant for any pulmonary nodule that was identified, however with the difficulty in the diagnosis and the persistence of shortness of breath, patient was subsequently scoped by Dr. Irvin for which malignancy was identified thru bronchial washings. physicians are at a quandry as to the location of the malignancy as the CAT scan were not conclusive with her 10 month symptoms, she went to [facility] per referral from Dr. Murguia and was found to have stage 4 lung carcinoma. She received the first chemo of 6 tx last dose was 09/04/2016. 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 She also has history off of iron and cervical cancer, hypertension and hyperlipidemia, rheumatoid arthritis, chemotherapy-induced neuropathy lower extremities. She was admitted to the emergency room after she got a phone call from [facility] notifying her of her abnormal CAT scan findings that shows a clot somewhere this CAT scan was performed last August 2016, and was subsequently recommended to go to emergency room. She has shortness of breath, and chronic left lower extremity swelling. Emergency room CTA of the chest was performed that shows no evidence of pulmonary embolism, there is bilateral pleural effusion with extensive pulmonary infiltrates, this colitis since of pulmonary infiltrate in both lungs, significant progression of airspace disease compared to last exam , possibly related to inflammatory disease consider possibility of RDS. Venous Dopplers shows positive DVT, there is reduced flow in the superficial femoral vein through the proximal calf veins, findings may be represent component of acute DVT superimposed with chronic DVT Review of Systems Constitutional: Reports as per HPI, Denies anorexia, Denies chills, Denies chronic headaches, Denies chronic pain, Denies daytime sleepiness, Denies fatigue, Denies fever, Denies lethargy, Denies malaise, Denies night sweats, Denies poor appetite, Denies sweats, Denies weakness, Denies weight gain, Denies weight loss Cardiovascular: Reports as per HPI, Reports decreased exercise tolerance, Reports leg edema, Reports shortness of breath Respiratory: Reports cough, Reports cough with sputum, Denies as per HPI, Denies congestion, Denies dyspnea, Denies excessive sputum, Denies hemoptysis, Denies home oxygen, Denies pain, Denies pain on inspiration, Denies pleurisy, Denies respiratory infections, Denies sleep apnea, Denies snoring, Denies wheezing Gastrointestinal: Reports as per HPI, Denies abdominal pain, Denies belching, Denies bloating, Denies BRBPR, Denies change in bowel habits, Denies coffee ground emesis, Denies constipation, Denies diarrhea, Denies dyspepsia, Denies early satiety, Denies excessive gas, Denies heartburn, Denies hematemesis, Denies hematochezia, Denies indigestion, Denies jaundice, Denies lactose intolerance, Denies loss of appetite, Denies melena, Denies nausea, Denies vomiting Genitourinary: Reports as per HPI, Denies abnormal vaginal bleeding, Denies decreased libido, Denies difficulty conceiving, Denies difficulty voiding, Denies dysmenorrhea, Denies dyspareunia, Denies dysuria, Denies flank pain, Denies genital sores, Denies hematuria, Denies hot flashes, Denies incomplete emptying, Denies kidney stones, Denies menorrhagia, Denies mixed incontinence, Denies nocturia, Denies pelvic pain, Denies post void dribbling, Denies , Denies prolapse symptoms, Denies stress incontinence, Denies urge incontinence , Denies urgency, Denies urinary frequency, Denies vaginal discharge, Denies vaginal dryness, Denies vaginal itching, Denies vaginal odor Menstruation: Reports as per HPI, Denies amenorrhea, Denies amenorrhea on BC, Denies currently menstrual, Denies cycle < 21 days, Denies cycle > 35 days, Denies cycle variable, Denies menses 1-7 days, Denies menses 8 or > days, Denies menses variable, Denies period heavy, Denies period light, Denies period normal, Denies period spotting, Denies post hysterectomy, Denies postmenopausal , Denies premenarcheal Musculoskeletal: Reports as per HPI, Reports leg numbness/tingling, Denies arm numbness/tingling, Denies atrophy, Denies fractures, Denies frequent falls, Denies gait dysfunction, Denies hot joints, Denies limitation of motion, Denies loss of height, Denies low back pain, Denies morning stiffness, Denies muscle cramps, Denies muscle weakness, Denies myalgias, Denies neck pain, Denies neck stiffness, Denies prior amputations, Denies redness of joints, Denies shooting arm pain, Denies shooting leg pain Integumentary: Reports as per HPI, Denies acne, Denies boils, Denies brittle nails, Denies change in hair/nails, Denies color changes, Denies darkening of skin, Denies depigmentation, Denies dryness, Denies foot/leg ulcers, Denies growths, Denies hirsutism, Denies lesions, Denies onychomycosis, Denies pruritus , Denies rash, Denies sores, Denies striae, Denies unusual bruising, Denies wounds Neurological: Reports as per HPI, Denies aphasia, Denies ataxia, Denies balance difficulties, Denies burning pain, Denies change in mentation, Denies change in smell/taste, Denies change in speech, Denies confusion, Denies convulsions, Denies double vision, Denies gait dysfunction, Denies head injury, Denies headaches, Denies hearing difficulties, Denies lack of coordination, Denies loss of vision, Denies memory loss, Denies migraines, Denies motor disturbance, Denies numbness, Denies paralysis, Denies paresthesias, Denies seizures, Denies sensory deficit, Denies spasticity, Denies syncope, Denies tic, Denies tingling , Denies transient paralysis, Denies tremors, Denies vertigo, Denies weakness, Denies visual changes Psychiatric: Reports as per HPI, Denies anhedonia, Denies anxiety, Denies anxiety attacks, Denies change in appetite, Denies change in libido, Denies change in sleep habits, Denies confusion, Denies depression, Denies difficulty concentrating, Denies disorientation, Denies hallucinations, Denies hopelessness , Denies hypersomnia, Denies insomnia, Denies irritability, Denies memory loss, Denies mood swings, Denies paranoia, Denies sadness/tearfulness, Denies sleep disturbances, Denies suicidal ideation Endocrine: Reports as per HPI, Denies cold intolerance, Denies deepening of the voice, Denies excessive sweating, Denies excessive thirst, Denies fatigue, Denies flushing, Denies heat intolerance, Denies high blood sugars, Denies increase in ring/shoe/hat size, Denies low blood sugars, Denies nocturia, Denies palpitations, Denies polydipsia, Denies polyphagia, Denies polyuria, Denies proptosis, Denies recent glucocorticoid use, Denies thyroid mass, Denies weight change Hematologic/Lymphatic: Reports as per HPI, Denies easy bleeding, Denies easy bruising, Denies lymphadenopathy, Denies lymphedema, Denies thrombophilia Allergic/Immunologic: Reports as per HPI, Denies allergic rhinitis, Denies anaphylaxis, Denies angioedema, Denies gluten intolerance, Denies persistent infections, Denies seasonal allergies, Denies urticaria, Denies wheezing Past Medical History Past Medical History: Cancer, Deep Vein Thrombosis (DVT), Hyperlipidemia, Hypertension, Pulmonary Embolus (PE), Rheumatoid Arthritis (RA) Additional Past Medical History / Comment(s): lung cancer, PE/DVT 2002, hx vaginal cancer, anemia, hx ovarian and cervical cancer, uses oxygen at night History of Any Multi-Drug Resistant Organisms: None Reported Past Surgical History: Hysterectomy, Orthopedic Surgery Additional Past Surgical History / Comment(s): drainage tube under rt breast for lung, ileostomy, left shoulder rotator cuff, vaginal surgery for cancer/ volvectomy, lung biopsy, Past Anesthesia/Blood Transfusion Reactions: No Reported Reaction Past Psychological History: No Psychological Hx Reported Smoking Status: Never smoker Past Alcohol Use History: Rare Past Drug Use History: None Reported - Past Family History Sister(s) Family Medical History: Cancer (Breast cancer) Mother Family Medical History: Coronary Artery Disease (CAD) (takotsubo syndrome) Medications and Allergies Home Medications Medication Instructions Recorded Confirmed Type Acetaminophen-Codeine 300-30mg 1 - 2 tab PO Q4-6H PRN 07/04/16 12/19/16 History [Tylenol #3] Atenolol [Tenormin] 50 mg PO HS 07/04/16 12/19/16 History Ezetimibe/Simvastatin [Vytorin 1 tab PO HS 07/04/16 12/19/16 History 10-20 mg Tablet] LORazepam [Ativan] 0.5 - 1 mg PO Q4-6H PRN 07/04/16 12/19/16 History Losartan/Hydrochlorothiazide 1 tab PO DAILY 07/04/16 12/19/16 History [Hyzaar 50-12.5 Tablet] Multivitamins, Thera [Multivitamin 1 tab PO DAILY 07/04/16 12/19/16 History (formulary)] Gabapentin [Neurontin] 600 mg PO TID 12/19/16 12/19/16 History Magnesium(Unknown Dose) 1 tab PO BID 12/19/16 12/19/16 History Vitamin B Complex 1 cap PO BID 12/19/16 12/19/16 History Zinc 50 mg PO DAILY 12/19/16 12/19/16 History Allergies Allergy/AdvReac Type Severity Reaction Status Date / Time Sulfa (Sulfonamide Allergy Rash/Hives Verified 12/19/16 22:10 Antibiotics) Physical Exam Vitals: Vital Signs Temp Pulse Pulse Resp BP BP Pulse Ox 12/20/16 16:00 89 18 12/20/16 08:00 89 18 12/20/16 07:00 98.4 F 89 16 114/74 97 12/20/16 00:30 97.9 F 90 16 124/61 94 L 12/19/16 23:46 98.4 F 88 18 109/65 98 12/19/16 22:55 86 16 95/51 97 12/19/16 21:41 87 18 97 12/19/16 20:57 99.3 F 87 20 108/59 88 L Intake and Output 12/20/16 12/20/16 12/20/16 06:59 14:59 22:59 Output Total 200 200 Balance -200 -200 Output: Urine 200 200 Other: # Bowel Movements 1 1 Weight 65 kg - Constitutional General appearance: cooperative, no acute distress - EENT Eyes: anicteric sclerae, dentition normal, normal appearance ENT: NA/AT, normal oropharynx - Neck Neck: normal ROM - Respiratory Respiratory: bilateral: CTA, negative: diminished, dullness, rales - Cardiovascular Rhythm: regular Heart sounds: normal: S1, S2 Abnormal Heart Sounds: no systolic murmur, no diastolic murmur, no rub, no S3 Gallop, no S4 Gallop, no click, no other - Gastrointestinal General gastrointestinal: normal bowel sounds, soft - Integumentary Integumentary: decreased turgor, normal - Neurologic Neurologic: CNII-XII intact - Musculoskeletal Musculoskeletal: gait normal, strength equal bilaterally - Psychiatric Psychiatric: A&O x's 3, appropriate affect, intact judgment & insight Results CBC & Chem 7: 12/20/16 08:03 12/20/16 08:03 Labs: Abnormal Lab Results - Last 24 Hours (Table) 12/19/16 12/19/16 12/19/16 Range/Units 22:16 22:16 22:16 RBC 3.70 L (3.80-5.40) m/uL MCV 104.9 H (80.0-100.0) fL MCHC 30.6 L (31.0-37.0) g/dL Lymphocytes # 0.7 L (1.0-4.8) k/uL Sodium 136 L (137-145) mmol/L Chloride 96 L (98-107) mmol/L Glucose 101 H (74-99) mg/dL AST 38 H (14-36) U/L CK-MB (CK-2) 5.3 H* (0.0-2.4) ng/mL 12/20/16 12/20/16 Range/Units 08:03 08:03 RBC 3.77 L (3.80-5.40) m/uL MCV 103.2 H (80.0-100.0) fL MCHC (31.0-37.0) g/dL Lymphocytes # 0.6 L (1.0-4.8) k/uL Sodium (137-145) mmol/L Chloride (98-107) mmol/L Glucose (74-99) mg/dL AST 42 H (14-36) U/L CK-MB (CK-2) (0.0-2.4) ng/mL Laboratory Results WBC 4.9 k/uL (3.8-10.6) 12/20/16 08:03 RBC 3.77 m/uL (3.80-5.40) L 12/20/16 08:03 Hgb 12.4 gm/dL (11.4-16.0) 12/20/16 08:03 Hct 38.9 % (34.0-46.0) 12/20/16 08:03 MCV 103.2 fL (80.0-100.0) H 12/20/16 08:03 MCH 32.9 pg (25.0-35.0) 12/20/16 08:03 MCHC 31.9 g/dL (31.0-37.0) 12/20/16 08:03 RDW 13.7 % (11.5-15.5) 12/20/16 08:03 Plt Count 151 k/uL (150-450) 12/20/16 08:03 Neutrophils % 77 % 12/20/16 08:03 Lymphocytes % 12 % 12/20/16 08:03 Monocytes % 9 % 12/20/16 08:03 Eosinophils % 0 % 12/20/16 08:03 Basophils % 0 % 12/20/16 08:03 Neutrophils # 3.8 k/uL (1.3-7.7) 12/20/16 08:03 Lymphocytes # 0.6 k/uL (1.0-4.8) L 12/20/16 08:03 Monocytes # 0.4 k/uL (0-1.0) 12/20/16 08:03 Eosinophils # 0.0 k/uL (0-0.7) 12/20/16 08:03 Basophils # 0.0 k/uL (0-0.2) 12/20/16 08:03 Hypochromasia Slight 12/20/16 08:03 Macrocytosis Slight 12/20/16 08:03 PT 10.7 sec (9.0-12.0) 12/19/16 22:16 INR 1.1 (<1.2) 12/19/16 22:16 APTT 23.4 sec (22.0-30.0) 12/19/16 22:16 Sodium 140 mmol/L (137-145) 12/20/16 08:03 Potassium 3.9 mmol/L (3.5-5.1) 12/20/16 08:03 Chloride 100 mmol/L (98-107) 12/20/16 08:03 Carbon Dioxide 27 mmol/L (22-30) 12/20/16 08:03 Anion Gap 13 mmol/L 12/20/16 08:03 BUN 11 mg/dL (7-17) 12/20/16 08:03 Creatinine 0.85 mg/dL (0.52-1.04) 12/20/16 08:03 Est GFR (MDRD) Af Amer >60 (>60 ml/min/1.73 sqM) 12/20/16 08:03 Est GFR (MDRD) Non-Af >60 (>60 ml/min/1.73 sqM) 12/20/16 08:03 Glucose 86 mg/dL (74-99) 12/20/16 08:03 Plasma Lactic Acid Alex 1.1 mmol/L (0.7-2.0) 12/19/16 22:16 Calcium 9.5 mg/dL (8.4-10.2) 12/20/16 08:03 Magnesium 2.2 mg/dL (1.6-2.3) 12/19/16 22:16 Total Bilirubin 0.5 mg/dL (0.2-1.3) 12/20/16 08:03 AST 42 U/L (14-36) H 12/20/16 08:03 ALT 26 U/L (9-52) 12/20/16 08:03 Alkaline Phosphatase 97 U/L (38-126) 12/20/16 08:03 Total Creatine Kinase 80 U/L (30-135) 12/19/16 22:16 CK-MB (CK-2) 5.3 ng/mL (0.0-2.4) H* 12/19/16 22:16 CK-MB (CK-2) Rel Index 6.6 12/19/16 22:16 Troponin I <0.012 ng/mL (0.000-0.034) 12/19/16 22:16 NT-Pro-B Natriuret Pep 1320 pg/mL 12/19/16 22:16 Total Protein 6.8 g/dL (6.3-8.2) 12/20/16 08:03 Albumin 3.9 g/dL (3.5-5.0) 12/20/16 08:03 Thrombosis Risk Factor Assmnt - DVT/VTE Prophylaxis DVT/VTE Prophylaxis: Pharmacologic Prophylaxis ordered, Mechanical Prophylaxis ordered - Choose All That Apply Any of the Below Risk Factors Present?: Yes Each Factor Represents 1 point: Swollen legs (current) Each Risk Factor Represents 2 Points: Age 61-74 years Each Risk Factor Represents 3 Points: History of DVT/PE Thrombosis Risk Factor Assessment Total Risk Factor Score: 6 Thrombosis Risk Factor Assessment Level: High Risk Assessment and Plan Plan: 1. Bilateral pulmonary infiltrates representing possibility of postobstructive pneumonia against worsening of pulmonary infiltrates from stage IV lung carcinoma however clinically she does not present this way, however in view of her immunocompromised state and CAT scan findings, we'll going to treat her with Commit acquired pneumonia. Her last admission to any hospital facility was in August 2016 for her lung biopsy, patient is in consultation by Dr. Garcia, Dr. Chavis, Dr. Rodriguez. Patient was empirically started on Levaquin and Zosyn , sputum cultures to be obtained blood cultures patient was started on prednisone 50 mg daily 3 continue nebulizers 2. Abnormal CAT scan in August 2016 with suspicion off pulmonary emboli and DVT left side, patient was started on Lovenox 60 mg every 12 hours with transition to oral medications oncology following 3. Chronic hypoxemic respiratory failure currently requiring O2 at 2 , at home are maintained occasions supplementation to keep pulse ox over 90%. Echocardiogram to be done to evaluate for right ventricular strain and shortness of breath or confusion 3. Chemotherapy induced neuropathy on gabapentin 600 mg 3 times a day no changes made 4 Hypertension on losartan HCTZ 50/12.5 no changes made continue atenolol 50 mg at bedtime 5 Hyperlipidemia on Vytorin 10/20 daily 6 Prognosis currently guarded 7 GI prophylaxis 8 DVT prophylaxis currently on Centrahoma embolism treatment using Lovenox Expected length of stay 3 nights
--- NOTE | 2016-12-20 17:20 | P.CNPUL ---
<Nidia Spence M - Last Filed: 12/20/16 16:25> History of Present Illness Consult date: 12/20/16 Requesting physician: Trinh Conroy Reason for consult: dyspnea, cough, hypoxemia, DVT, abnormal CXR/CT Chief complaint: Shortness of breath, cough with production of parrish sputum History of present illness: Mago is a 61-year-old white female patient who presented to the emergency department on 12/19/2016 at approximately 2100 with complaint of one week's worth of increasing shortness of breath, hacky cough with production of initially clear sputum that turned ayon. She does have some underlying chronic dyspnea on exertion, she wears home O2 at bedtime at 2 L per nasal cannula, but her current level of dyspnea is increased from her baseline and significantly limited her level of activity. She denies having any fevers or chills at home. In addition, she has received a phone call from her DIRECT[employer] oncologist Dr. Bobby Powell from the [facility] yesterday in regards to CT evidence of a blood clot in her left leg and pelvis. Mago follows with Dr. Powell for her history of ovarian, cervical and vulvar cancer that was first diagnosed in [address] Chavarria. Most of her history is obtained from the patient and the patient's spouse, records were requested from the [facility] and Dr. Murguia. Patient had abnormal cervical Pap smears, underwent total abdominal hysterectomy in [address] Chavarria, during which abnormal ovarian growth was detected and removed. The pathology was later found to be malignant. 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 Around the same time in 2002 she had a pulmonary embolism and a DVT in her left leg for which she was treated with a 6 months course of Coumadin. She had also undergone radiation and chemo and finished her last round of chemo in November 2015. In February 2016 patient was referred to Dr. HENNY Henderson for her increasing shortness of breath, initially treated with antibiotics, steroids, with no improvement. Dr. Lezama performed a bronchoscopy with a biopsy, and had told the patient the pathology was positive for lung cancer. Patient subsequently got refer to the [facility] cardiothoracic surgeon Dr. Henderson we did a wedge resection which was positive for malignancy. Patient sees Dr. Murguia who has recommended continuation of chemotherapy. CT of chest on 12/19/2016 showed no evidence of pulmonary embolism, significant progression of the airspace disease compared to the last exam on 10/15/2016. Venous Doppler on 12/20/2016 was positive for reduced flow involving the left lower extremity from the superficial femoral vein. The findings could represent a component of chronic DVT. Patient is not currently on any anticoagulation. Evaluation patient is sitting up in bed, awake alert, in no acute distress. She is on 2 L, with O2 sat at 94-97%, she is afebrile, no significant cough, or sputum production noted. Lungs sounds are diminished. No wheezing, no rhonchi, no rales appreciated. A significant amount of swelling in the left lower leg, nonpitting. Patient states she has chronic swelling in her left leg related to lymphedema post extensive pelvic and vulvar resection due to history of cancers. Denies any significant discomfort at this time, states she is short of breath with exertion, is wearing her oxygen continuously compared to just at bedtime. No signs of a leukocytosis noted, no coagulopathy, no significant electrolyte abnormality. Her CK-MB was elevated at 5.3, troponin is negative, proBNP was elevated at 1320 on admission. She does complain of anterior chest wall tenderness, worse with palpation. Review of Systems All systems: negative Constitutional: Denies chills, Denies fever Eyes: denies blurred vision, denies pain Ears, nose, mouth and throat: Denies headache, Denies sore throat Cardiovascular: Denies chest pain, Denies shortness of breath Respiratory: Denies cough Gastrointestinal: Denies abdominal pain, Denies diarrhea, Denies nausea, Denies vomiting Genitourinary: Denies dysuria, Denies hematuria Musculoskeletal: Denies myalgias Integumentary: Denies pruritus, Denies rash Neurological: Denies numbness, Denies weakness Psychiatric: Denies anxiety, Denies depression Endocrine: Denies fatigue, Denies weight change Past Medical History Past Medical History: Cancer, Deep Vein Thrombosis (DVT), Hyperlipidemia, Hypertension, Pulmonary Embolus (PE), Rheumatoid Arthritis (RA) Additional Past Medical History / Comment(s): lung cancer, PE/DVT 2002, hx vaginal cancer, anemia, hx ovarian and cervical cancer, uses oxygen at night History of Any Multi-Drug Resistant Organisms: None Reported Past Surgical History: Hysterectomy, Orthopedic Surgery Additional Past Surgical History / Comment(s): drainage tube under rt breast for lung, ileostomy, left shoulder rotator cuff, vaginal surgery for cancer/ volvectomy, lung biopsy, Past Anesthesia/Blood Transfusion Reactions: No Reported Reaction Past Psychological History: No Psychological Hx Reported Smoking Status: Never smoker Past Alcohol Use History: Rare Past Drug Use History: None Reported - Past Family History Sister(s) Family Medical History: Cancer Medications and Allergies Home Medications Medication Instructions Recorded Confirmed Type Acetaminophen-Codeine 300-30mg 1 - 2 tab PO Q4-6H PRN 07/04/16 12/19/16 History [Tylenol #3] Atenolol [Tenormin] 50 mg PO HS 07/04/16 12/19/16 History Ezetimibe/Simvastatin [Vytorin 1 tab PO HS 07/04/16 12/19/16 History 10-20 mg Tablet] LORazepam [Ativan] 0.5 - 1 mg PO Q4-6H PRN 07/04/16 12/19/16 History Losartan/Hydrochlorothiazide 1 tab PO DAILY 07/04/16 12/19/16 History [Hyzaar 50-12.5 Tablet] Multivitamins, Thera [Multivitamin 1 tab PO DAILY 07/04/16 12/19/16 History (formulary)] Gabapentin [Neurontin] 600 mg PO TID 12/19/16 12/19/16 History Magnesium(Unknown Dose) 1 tab PO BID 12/19/16 12/19/16 History Vitamin B Complex 1 cap PO BID 12/19/16 12/19/16 History Zinc 50 mg PO DAILY 12/19/16 12/19/16 History Allergies Allergy/AdvReac Type Severity Reaction Status Date / Time Sulfa (Sulfonamide Allergy Rash/Hives Verified 12/19/16 22:10 Antibiotics) Physical Exam Vitals: Vital Signs Temp Pulse Pulse Resp BP BP Pulse Ox 12/20/16 08:00 89 18 12/20/16 07:00 98.4 F 89 16 114/74 97 12/20/16 00:30 97.9 F 90 16 124/61 94 L 12/19/16 23:46 98.4 F 88 18 109/65 98 12/19/16 22:55 86 16 95/51 97 12/19/16 21:41 87 18 97 12/19/16 20:57 99.3 F 87 20 108/59 88 L Intake and Output 12/20/16 12/20/16 12/20/16 06:59 14:59 22:59 Output Total 200 200 Balance -200 -200 Output: Urine 200 200 Other: # Bowel Movements 1 1 Weight 65 kg GENERAL EXAM: Alert, active, comfortable in no apparent distress. HEAD: Normocephalic/atraumatic. EYES: Normal reaction of pupils, equal size. Conjunctiva pink, sclera white. NOSE: Clear with pink turbinates. THROAT: No erythema or exudates. NECK: No masses, no JVD, no thyroid enlargement, no adenopathy. CHEST: No chest wall deformity. Symmetrical expansion. Chest wall is tender to palpation. LUNGS: Equal air entry with no crackles, wheeze, rhonchi or dullness. Diminished bilaterally CVS: Regular rate and rhythm, normal S1 and S2, no gallops, no murmurs, no rubs ABDOMEN: Soft, nontender. No hepatosplenomegaly, normal bowel sounds, no guarding or rigidity. EXTREMITIES: No clubbing, no cyanosis, 2+ pulses and upper and lower extremities. 2+ nonpitting left lower leg edema, no tenderness or redness in the posterior left calf MUSCULOSKELETAL: Muscle strength and tone normal. SPINE: No scoliosis or deformity SKIN: No rashes CENTRAL NERVOUS SYSTEM: Alert and oriented 3. No focal deficits, tone is normal in all 4 extremities. PSYCHIATRIC: Alert and oriented 3. Appropriate affect. Intact judgment and insight. Results - Laboratory Findings CBC and BMP: 12/20/16 08:03 12/20/16 08:03 PT/INR, D-dimer PT 10.7 sec (9.0-12.0) 12/19/16 22:16 INR 1.1 (<1.2) 12/19/16 22:16 Abnormal lab findings: Abnormal Labs 12/19/16 12/19/16 12/19/16 22:16 22:16 22:16 RBC 3.70 L MCV 104.9 H MCHC 30.6 L Lymphocytes # 0.7 L Sodium 136 L Chloride 96 L Glucose 101 H AST 38 H CK-MB (CK-2) 5.3 H* 12/20/16 12/20/16 08:03 08:03 RBC 3.77 L MCV 103.2 H MCHC Lymphocytes # 0.6 L Sodium Chloride Glucose AST 42 H CK-MB (CK-2) - Diagnostic Findings Chest x-ray: report reviewed CT scan - chest: report reviewed U/S of Legs: report reviewed Assessment and Plan Plan: Assessments: #1. Acute on chronic hypoxic respiratory failure related to extensive malignant metastasis to the lungs, possibly from primary site from cervical, ovarian and vulvar cancer. There is evidence of significant progression of airspace disease related to lung metastasis on the CTA from 12/19/2016 compared to the previous CT from 10/15/2016. No evidence of pulmonary embolism. Doubt pneumonia at this time. #2. Bilateral pleural effusions with extensive pulmonary infiltrates as evidenced on CTA chest from 12/19/2016 there is thought to be related to extensive metastasis to the lungs #3. History of ovarian, cervical, and vulvar cancer, with total abdominal hysterectomy and oophorectomy, extensive vulvar resection and placement of urostomy. Status post treatment with radiation and chemotherapy, last chemotherapy completed in November 2015 #4. History of pulmonary embolism in 2002 treated with Coumadin #5. History of left leg DVT in 2002, treated with 6 month course of Coumadin #6. Lifetime nonsmoker #7. History of left leg lymphedema, related to history of extensive pelvic resection due to malignancy #8. History of anemia #9. History of rheumatoid arthritis Plan: CTA chest, chest x-ray and the venous Doppler results and films were reviewed by Dr. Chavis. There is evidence of significant progression of airspace disease related to extensive lung metastasis, doubt presence of pneumonia at this time. Patient's dyspnea, and hypoxia is very likely to be attributed to the extensive metastatic process in the lungs. Agree with repeating the CT of the abdomen and pelvis. We are awaiting further input from oncology at this point regarding the treatment. Requested the records from the [facility] and Dr. Murguia's office. Further recommendations to follow. This was discussed with the patient and the patient's spouse. I performed a history & physical examination of the patient and discussed their management with my nurse practitioner, Nidia Spence. I reviewed the nurse practitioner's note and agree with the documented findings and plan of care. Lung sounds are positive for diffuse wheezes throughout the lung vaughn. The findings and the impression was discussed with the patient. I attest to the documentation by the nurse practitioner. Time with Patient: Greater than 30 <Leta Chavis - Last Filed: 12/20/16 19:24> Physical Exam Vitals: Vital Signs Temp Pulse Pulse Resp BP BP Pulse Ox 12/20/16 16:00 89 18 12/20/16 15:00 97.6 F 91 24 121/71 96 12/20/16 08:00 89 18 12/20/16 07:00 98.4 F 89 16 114/74 97 12/20/16 00:30 97.9 F 90 16 124/61 94 L 12/19/16 23:46 98.4 F 88 18 109/65 98 12/19/16 22:55 86 16 95/51 97 12/19/16 21:41 87 18 97 12/19/16 20:57 99.3 F 87 20 108/59 88 L Intake and Output 12/20/16 12/20/16 12/20/16 06:59 14:59 22:59 Output Total 200 200 Balance -200 -200 Output: Urine 200 200 Other: # Bowel Movements 1 1 Weight 65 kg Results - Laboratory Findings CBC and BMP: 12/20/16 08:03 12/20/16 08:03 PT/INR, D-dimer PT 10.7 sec (9.0-12.0) 12/19/16 22:16 INR 1.1 (<1.2) 12/19/16 22:16 Abnormal lab findings: Abnormal Labs 12/19/16 12/19/16 12/19/16 22:16 22:16 22:16 RBC 3.70 L MCV 104.9 H MCHC 30.6 L Lymphocytes # 0.7 L Sodium 136 L Chloride 96 L Glucose 101 H AST 38 H CK-MB (CK-2) 5.3 H* 12/20/16 12/20/16 08:03 08:03 RBC 3.77 L MCV 103.2 H MCHC Lymphocytes # 0.6 L Sodium Chloride Glucose AST 42 H CK-MB (CK-2) Assessment and Plan Plan: This is a joint evaluation that was done along with a nurse practitioner. I spent approximately an hour with this patient talking to her about her CAT scan findings. I also showed her the images and compared the most recent CAT scan of the chest that was done during this current admission to the one that was done back in September 2016. There is obvious progression in the course interstitial changes scattered throughout the lung vaughn bilaterally in addition to the irregular nodularity, the masslike consolidation and the persistent right-sided pleural effusion. There is obvious progression and the findings of the lung consistent with metastatic involvement from the primary cancer. This has been confirmed to be adenocarcinoma at [facility]. No evidence of pulmonary embolism. It is however worthwhile to put this patient on Lovenox knowing that the patient has bilateral lower extremity DVT and most recent ultrasound Doppler of the lower extremities suggestive of blood clots. Right-sided pleural effusion is not abnormal for thoracentesis at this point. Long-term prognosis poor based on obvious disease progression.
[2016-12-20] MEDS: PANTOPRAZOLE 40 MG/10 ML VIAL IVP SCH (17:30)
--- NOTE | 2016-12-20 17:48 | P.CONS ---
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 In 2002 she was diagnosed with invasive adenocarcinoma of the vagina, treated with vaginectomy at [facility], adjuvant radiation therapy in [place], completed 04/20. In 2013 she had vaginal recurrence that required anterior pelvic exanteration and creation of urostomy with ileal conduit. In Oct 2014 she had recurrence in vulva which required radical anterior hemivulvectomy at [facility]. She continued on follow up, 07/01/15 CT revealed bilateral small lung nodules, otherwise negative. The lung nodules were monitored and on 07/29/15 she underwent bronchoscopy and transbronchial biopsy, malignant cells found, recommendation for further evaluation, repeat bronchoscopy was not diagnostic, CT guided biopsy was sched but scan showed significant improvement in lung lesions, felt to be inflammatory and the biopsy was canceled. September 2015 pt had local recurrence of adenocarcinoma of the vulva treated with radical excision. She started concurrent chemoradiation with weekly cisplatin 12/03, completed radiation on 01/03. Follow up CT revealed non specific lung nodules again, follow up CT showed further progression of lung nodules and on 04/19/16 pt had MARY wedge resection, pathology positive for metastatic adenocarcinoma, consistent with primary vaginal cancer. Carboplatin/taxol/avastin treatment was started in April, CA125 was down to 54 in July, 6 cycles completed in August, CA125 was down to 34. 10/15/16 CT CAP revealed questionable sclerotic bone lesions. Pt had progressive B symptoms as well as dyspnea and peripheral neuropathy, she had pleurix drain placed and removed by [facility]. Pt was seen by Dr. Whittaker with CT scheduled for tomorrow, for if there was evidence of progressive disease then pt would have to consider treatment or comfort measures. Pt is SOB at rest, requires O2, can't take a deep breath, dry cough, no hemoptysis, pleuritic pain, she denies fever, nausea, chest pain, urostomy working well with clear yellow urine, denies bowel changes, her LLE is swollen on and off for for a few weeks, she denies any pain, bleeding. Review of Systems 10 point ROS is as stated in HPI Past Medical History Past Medical History: Cancer, Deep Vein Thrombosis (DVT), Hyperlipidemia, Hypertension, Pulmonary Embolus (PE), Rheumatoid Arthritis (RA) Additional Past Medical History / Comment(s): lung cancer, PE/DVT 2002, hx vaginal cancer, anemia, hx ovarian and cervical cancer, uses oxygen at night History of Any Multi-Drug Resistant Organisms: None Reported Past Surgical History: Hysterectomy, Orthopedic Surgery Additional Past Surgical History / Comment(s): drainage tube under rt breast for lung, ileostomy, left shoulder rotator cuff, vaginal surgery for cancer/ volvectomy, lung biopsy, Past Anesthesia/Blood Transfusion Reactions: No Reported Reaction Past Psychological History: No Psychological Hx Reported Smoking Status: Never smoker Past Alcohol Use History: Rare Past Drug Use History: None Reported - Past Family History Sister(s) Family Medical History: Cancer Mother Family Medical History: Coronary Artery Disease (CAD) (takotsubo syndrome) Medications and Allergies Home Medications Medication Instructions Recorded Confirmed Type Acetaminophen-Codeine 300-30mg 1 - 2 tab PO Q4-6H PRN 07/04/16 12/19/16 History [Tylenol #3] Atenolol [Tenormin] 50 mg PO HS 07/04/16 12/19/16 History Ezetimibe/Simvastatin [Vytorin 1 tab PO HS 07/04/16 12/19/16 History 10-20 mg Tablet] LORazepam [Ativan] 0.5 - 1 mg PO Q4-6H PRN 07/04/16 12/19/16 History Losartan/Hydrochlorothiazide 1 tab PO DAILY 07/04/16 12/19/16 History [Hyzaar 50-12.5 Tablet] Multivitamins, Thera [Multivitamin 1 tab PO DAILY 07/04/16 12/19/16 History (formulary)] Gabapentin [Neurontin] 600 mg PO TID 12/19/16 12/19/16 History Magnesium(Unknown Dose) 1 tab PO BID 12/19/16 12/19/16 History Vitamin B Complex 1 cap PO BID 12/19/16 12/19/16 History Zinc 50 mg PO DAILY 12/19/16 12/19/16 History Allergies Allergy/AdvReac Type Severity Reaction Status Date / Time Sulfa (Sulfonamide Allergy Rash/Hives Verified 12/19/16 22:10 Antibiotics) Physical Exam Vitals: Vital Signs Temp Pulse Pulse Resp BP BP Pulse Ox 12/20/16 00:30 97.9 F 90 16 124/61 94 L 12/19/16 23:46 98.4 F 88 18 109/65 98 12/19/16 22:55 86 16 95/51 97 12/19/16 21:41 87 18 97 12/19/16 20:57 99.3 F 87 20 108/59 88 L Intake and Output 12/19/16 12/20/16 12/20/16 22:59 06:59 14:59 Other: # Bowel Movements 1 Weight 65.771 kg 65 kg - Constitutional General appearance: average body habitus, cooperative, mild distress - EENT Eyes: anicteric sclerae, EOMI, normal appearance ENT: normal oropharynx - Neck Neck: no lymphadenopathy - Respiratory Respiratory: bilateral: diminished (shallow, rapid breaths) - Cardiovascular Heart sounds: normal: S1, S2 Abnormal Heart Sounds: systolic murmur leg Peripheral Edema: right: None, left: 2+ - Gastrointestinal General gastrointestinal: no absent bowel sounds, no decreased bowel sounds, distended, no hepatomegaly, no hyperactive bowel sounds, normal bowel sounds, no organomegaly, no rigid, no scaphoid, soft, no splenomegaly, no tenderness, no umbilical hernia, no ventral hernia - Integumentary Integumentary: normal turgor - Neurologic Neurologic: CNII-XII intact - Musculoskeletal Musculoskeletal: strength equal bilaterally - Psychiatric Psychiatric: A&O x's 3, appropriate affect, intact judgment & insight Results CBC & Chem 7: 12/20/16 08:03 12/20/16 08:03 Labs: Abnormal Lab Results - Last 24 Hours (Table) 12/19/16 12/19/16 12/19/16 Range/Units 22:16 22:16 22:16 RBC 3.70 L (3.80-5.40) m/uL MCV 104.9 H (80.0-100.0) fL MCHC 30.6 L (31.0-37.0) g/dL Lymphocytes # 0.7 L (1.0-4.8) k/uL Sodium 136 L (137-145) mmol/L Chloride 96 L (98-107) mmol/L Glucose 101 H (74-99) mg/dL AST 38 H (14-36) U/L CK-MB (CK-2) 5.3 H* (0.0-2.4) ng/mL CT scan - chest: report reviewed Venous US: report reviewed Assessment and Plan (1) Difficulty breathing Narrative/Plan: Pt being evaluated and treated by Pulmonary, on O2, abx, and supportive respiratory care Current Visit: Yes Status: Acute Priority: High Code(s): R06.89 - OTHER ABNORMALITIES OF BREATHING SNOMED Code(s): 471214302 (2) Gynecologic malignancy Narrative/Plan: CT was sched for tomorrow, it will be done inpatient. Treatment options, prognosis with and without treatment are questions the pt wants answered. We will follow up after scan and provide pt with this information. Cont best supportive treatment and care at this time Current Visit: Yes Status: Acute Priority: High Code(s): C57.9 - MALIGNANT NEOPLASM OF FEMALE GENITAL ORGAN, UNSPECIFIED SNOMED Code(s): 438491292 (3) DVT (deep venous thrombosis) Narrative/Plan: Pt has been started on lovenox BID. Current Visit: Yes Status: Acute Priority: High Code(s): I82.409 - ACUTE EMBOLISM AND THOMBOS UNSP DEEP VN UNSP LOWER EXTREMITY SNOMED Code(s): 784365768
[2016-12-20] MEDS ORDERED: ATORVASTATIN 10 MG TAB PO SCH (21:00)
[2016-12-20] MEDS ORDERED: EZETIMIBE 10 MG TAB PO SCH (21:00)
[2016-12-20] MEDS ORDERED: ATENOLOL 50 MG TAB PO SCH (21:00)
[2016-12-20] MEDS: B COMPLEX-VIT C-VIT E-ZINC 1 EACH TAB PO SCH (22:19)
[2016-12-21] MEDS: PIPERACILLIN-TAZOBACTAM 3.375 GM in DEXTROSE/WATER 1 50ML.BAG IVPB SCH ×3 (00:23→16:18)
[2016-12-21] MEDS ORDERED: LEVOFLOXACIN 500 MG TAB PO SCH ×2 (01:00→12:00)
[2016-12-21 06:34] LABS: Basophils % (A) 0 %; CH 31.5; CHCM 30.5; Eosinophils % (A) 0 %; HCT 34.9 % (34.0-46.0); HDW 2.33; HGB 10.9 gm/dL (11.4-16.0); Hypochromasia Moderate; Luc % (Auto) 2; Lymphocytes # (A) 0.7 k/uL (1.0-4.8); Lymphocytes % (A) 15 %; MCH 32.3 pg (25.0-35.0); MCHC 31.2 g/dL (31.0-37.0); MCV 103.5 fL (80.0-100.0); Macrocytosis Slight; Mean Platelet Volume 9.6; Monocytes # (A) 0.4 k/uL (0-1.0); Monocytes % (A) 9 %; Neutrophils # (A) 3.8 k/uL (1.3-7.7); Neutrophils % (A) 75 %; RBC 3.37 m/uL (3.80-5.40); RDW 14.6 % (11.5-15.5); WBC 5.1 k/uL (3.8-10.6); WBC (Perox) 5.05
[2016-12-21 06:58] LABS: ALT 28 U/L (9-52); AST 27 U/L (14-36); Alkaline Phosphatase 89 U/L (38-126); Anion Gap 9 mmol/L; Blood Urea Nitrogen 12 mg/dL (7-17); Carbon Dioxide 30 mmol/L (22-30); Chloride 102 mmol/L (98-107); Glucose 91 mg/dL (74-99); Non-African American GFR(MDRD) >60 (>60 ml/min/1.73 sqM); Potassium 3.8 mmol/L (3.5-5.1); Sodium 141 mmol/L (137-145); Total Bilirubin 0.3 mg/dL (0.2-1.3); Total Protein 6.1 g/dL (6.3-8.2)
[2016-12-21] MEDS: IOHEXOL 350 MG/ML 25 ML BOTTLE (ORAL USE) PO PRN ×2 (08:12→09:28)
[2016-12-21] MEDS ORDERED: NON-FORMULARY DRUG (Zinc [Zinc] 50 MG) PO SCH (09:00)
[2016-12-21] MEDS: SODIUM CHLORIDE 0.9% 1,000 ML IV SCH ×2 (09:31→16:14)
[2016-12-21] MEDS: B COMPLEX-VIT C-VIT E-ZINC 1 EACH TAB PO SCH (10:37)
[2016-12-21] MEDS: LOSARTAN-HCTZ 50-12.5 MG 1 EACH TAB PO SCH (10:38)
[2016-12-21] MEDS: ENOXAPARIN 60 MG/0.6 ML SYRINGE SQ SCH (10:38)
[2016-12-21] MEDS: predniSONE 50 MG TAB PO SCH (10:38)
[2016-12-21] MEDS: PANTOPRAZOLE 40 MG/10 ML VIAL IVP SCH (10:38)
[2016-12-21] MEDS: GABAPENTIN 300 MG CAP PO SCH ×2 (10:38→16:15)
--- NOTE | 2016-12-21 11:12 | P.CONS ---
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 Pap smears repeatedly came back with cancer despite treatment with a topical chemotherapy. She eventually had laser treatment to the vagina for which she didn't have repeat cancer found. There was 2 procedures to shorten the vagina and she seemed to do well for a time and 2 2013 when she noticed a pimple in the vaginal area which was diagnosed with cancer and patient ended up with urostomy. She did well for a couple years and then noticed another pimple which was diagnosed as cancer and her vagina and part of the vulva was removed and then about 10 months later she was again diagnosed with cancer and underwent a vulvectomy and chemotherapy treatment. One year ago she was diagnosed with left lower extremity lymphedema. She gives history that in the fall of 2015 she started having difficulty breathing for which she follows with Dr. HENNY Henderson and underwent [address] Lezama. She initially was told wrong washings were positive for lung cancer however the biopsy was negative. She saw Dr. Murguia and he was doubtful that she had cancer at that time but due to nodules found in CAT scan she went to [facility] and had a needle biopsy done and the nodules could not be located. She continue to follow with Dr. HENNY Henderson and was on nebulizer treatments and steroids and follow-up with him every couple weeks. Finally by [place] time 2015 he sent her to [facility] and she had an appointment in February 2016. They did a surgical lung biopsy performed by Dr. Henderson at [facility] on the left lung around the end of March and at the same time she developed a pleural effusion on the right side for which 1 L was drained. She was discharged home and shortly after that the surgeon, Dr. Henderson, and [facility] called and stated she had stage IV lung cancer and surgery was not an option. A few weeks later, she was seen at [facility] as she had fluid-filled on her right side and a drain was permanently placed which lasted for 5 months until drainage had stopped and this was removed in October. Patient started chemotherapy at the end of April. 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 Chemotherapy ended September 04 and she completed 6 treatments one dose every 21 days. During that time, her pulmonary doctor at [facility], Dr. Norton, placed her on oxygen at night and she was gradually able to be weaned off this and has not been using oxygen for a couple months. For the past week she has had increased shortness of breath at night and has started using oxygen again at night and during the day as needed such as after showering. She underwent a CAT scan of the chest abdomen and pelvis with contrast done on October 15 at [facility] ordered by Dr. Whittaker which revealed multiple sclerotic type metastasis through the lumbar spine with some milder areas within the thoracic spine and greater in the lower thoracic spine. Small right and minimal left pleural effusion. Drainage catheter in the right pleural cavity. Postsurgical changes with urostomy right lower quadrant. Patient took the disc of this CAT scan to her physician at [facility] on October 26 but they were unable to get to work in the computer at that time. She called back several times to get a report from them and did not hear anything until Saturday at 8 PM, [facility] called and suspected a blood clot and recommended that she come into the hospital for evaluation. In the meantime she had been seen by Dr. Whittaker 3 weeks ago and recommended maintenance chemotherapy if her physician, Dr. Powell, at [facility] who seemed to agree with this plan. Patient was seen in the emergency center. She was afebrile with white count of 5.1. Ultrasound of the left lower extremity showed reduced flow from the superficial femoral vein through the proximal calf veins compatible with DVT. Findings may represent a component of chronic DVT. Superimposed acute DVT in the differential. Patient does have history of a left lower extremity DVT and pulmonary embolism in 2003. CTA of the chest showed no evidence of pulmonary embolism. Bilateral pleural effusions with extensive pulmonary infiltrates. There is coalescent pulmonary infiltrate in both lungs. There is significant progression of the airspace disease compared to last exam of 10/15/2016. This probably relates to inflammatory disease. Continue possibility of RDS. Patient has been seen by Dr. Chavis and didn't compare results of CAT scans from September to present with concern for return of cancer since chemotherapy. No definite pulmonary embolism however. Patient is going for a repeat CAT scan today with contrast. She is currently on antibiotics in the form of Levaquin and Zosyn Review of Systems All systems: negative Constitutional: Reports fatigue, Denies chills, Denies fever Eyes: denies blurred vision, denies pain Ears, nose, mouth and throat: Denies dental pain, Denies headache, Denies mouth pain, Denies sore throat, Denies vertigo Cardiovascular: Reports decreased exercise tolerance, Reports dyspnea on exertion, Reports leg edema, Reports shortness of breath, Denies chest pain, Denies lightheadedness, Denies syncope Respiratory: Reports cough, Reports cough with sputum, Reports dyspnea, Reports home oxygen Gastrointestinal: Denies abdominal pain, Denies diarrhea, Denies nausea, Denies vomiting Genitourinary: Denies dysuria, Denies hematuria, Denies urgency, Denies urinary frequency Musculoskeletal: Denies myalgias Integumentary: Denies pruritus, Denies rash Neurological: Denies numbness, Denies weakness Psychiatric: Denies anxiety, Denies depression Endocrine: Denies fatigue, Denies weight change Past Medical History Past Medical History: Cancer, Deep Vein Thrombosis (DVT), Hyperlipidemia, Hypertension, Pulmonary Embolus (PE), Rheumatoid Arthritis (RA) Additional Past Medical History / Comment(s): lung cancer, PE/DVT 2002, hx uterine, ovarian, cervical, vaginal cancer, stage IV lung cancer, peripheral neuropathy secondary to chemotherapy, uses oxygen at night History of Any Multi-Drug Resistant Organisms: None Reported Past Surgical History: Hysterectomy, Orthopedic Surgery Additional Past Surgical History / Comment(s): drainage tube under rt breast for pleural effusion, ileostomy, bilateral shoulder rotator cuff, hysterectomy, shortening of the vaginal canal 2, removal of the vaginal and partial vulvectomy followed by complete vulvectomy, right IJ PwerPort placement, thoracentesis Past Anesthesia/Blood Transfusion Reactions: No Reported Reaction Past Psychological History: No Psychological Hx Reported Smoking Status: Never smoker Past Alcohol Use History: Rare Additional Past Alcohol Use History / Comment(s): Patient is a lifelong nonsmoker. She denies any medical marijuana, marijuana, street drug use. She drinks alcohol occasionally. She lives at home with her . 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 She enjoys gardening and crafts, making her own wine and has in the past enjoyed mowing the lawn. Past Drug Use History: None Reported - Past Family History Sister(s) Family Medical History: Cancer Mother Family Medical History: Coronary Artery Disease (CAD) (takotsubo syndrome) Medications and Allergies Home Medications Medication Instructions Recorded Confirmed Type Acetaminophen-Codeine 300-30mg 1 - 2 tab PO Q4-6H PRN 07/04/16 12/19/16 History [Tylenol w/codeine #3] Atenolol [Tenormin] 50 mg PO HS 07/04/16 12/19/16 History Ezetimibe/Simvastatin [Vytorin 1 tab PO HS 07/04/16 12/19/16 History 10-20 mg Tablet] LORazepam [Ativan] 0.5 - 1 mg PO Q4-6H PRN 07/04/16 12/19/16 History Losartan/Hydrochlorothiazide 1 tab PO DAILY 07/04/16 12/19/16 History [Hyzaar 50-12.5 Tablet] Multivitamins, Thera [Multivitamin 1 tab PO DAILY 07/04/16 12/19/16 History (formulary)] Gabapentin [Neurontin] 600 mg PO TID 12/19/16 12/19/16 History Magnesium(Unknown Dose) 1 tab PO BID 12/19/16 12/19/16 History Vitamin B Complex 1 cap PO BID 12/19/16 12/19/16 History Zinc 50 mg PO DAILY 12/19/16 12/19/16 History Rivaroxaban [Xarelto] 15 mg PO BID-W/MEALS #40 tab 12/21/16 Rx Rivaroxaban [Xarelto] 20 mg PO DAILY #30 tab 12/21/16 Rx Allergies Allergy/AdvReac Type Severity Reaction Status Date / Time Sulfa (Sulfonamide Allergy Rash/Hives Verified 12/19/16 22:10 Antibiotics) Physical Exam Vitals: Vital Signs Temp Pulse Resp BP BP Pulse Ox 12/21/16 07:00 98.5 F 86 16 114/70 99 12/20/16 23:00 97.4 F L 103 H 16 127/75 95 12/20/16 19:34 98.2 F 94 24 124/80 98 12/20/16 16:00 89 18 12/20/16 15:00 97.6 F 91 24 121/71 96 Intake and Output 12/20/16 12/21/16 12/21/16 22:59 06:59 14:59 Intake Total 225 1240 Output Total 200 600 Balance 25 640 Intake: Intake, IV Titration 225 650 Amount Piperacillin-Tazobactam 3 50 .375 gm In Dextrose/Water 1 50ml.bag @ 12.5 mls/hr IVPB Q8HR RYAN Rx#: [id number] Sodium Chloride 0.9% 1, 225 600 000 ml @ 75 mls/hr IV . [id number] RYAN Rx#:[id number] Oral 590 Output: Urine 200 600 Other: # Bowel Movements 1 Gen: This is a 61-year-old female. She is sitting up in bed and appears to be in no acute distress. No respiratory distress noted. HEENT: Head is atraumatic, normocephalic. Pupils equal, round. Sclerae is anicteric. Conjunctiva pink. Mucous members of the mouth are moist. No thrush noted. No lesions noted. Dentition is in good order. NECK: Supple. No JVD. No lymphadenopathy. No thyromegaly. LUNGS: Rhonchi in the bilateral bases and occasional expiratory wheeze. No intercostal retractions. HEART: Regular rate and rhythm. No murmur. ABDOMEN: Soft. Bowel sounds are present. No masses. No tenderness. Right lower quadrant ileostomy in place with clear corine urine. EXTREMITIES: No pedal edema. Left lower extremity lymphedema noted. No tenderness or redness. NEUROLOGICAL: Patient is awake, alert and oriented x3. Cranial nerves 2 through 12 are grossly intact. Results Results: Laboratory Results WBC 5.1 k/uL (3.8-10.6) 12/21/16 06:25 RBC 3.37 m/uL (3.80-5.40) L 12/21/16 06:25 Hgb 10.9 gm/dL (11.4-16.0) L 12/21/16 06:25 Hct 34.9 % (34.0-46.0) 12/21/16 06:25 MCV 103.5 fL (80.0-100.0) H 12/21/16 06:25 MCH 32.3 pg (25.0-35.0) 12/21/16 06:25 MCHC 31.2 g/dL (31.0-37.0) 12/21/16 06:25 RDW 14.6 % (11.5-15.5) 12/21/16 06:25 Plt Count 144 k/uL (150-450) L 12/21/16 06:25 Neutrophils % 75 % 12/21/16 06:25 Lymphocytes % 15 % 12/21/16 06:25 Monocytes % 9 % 12/21/16 06:25 Eosinophils % 0 % 12/21/16 06:25 Basophils % 0 % 12/21/16 06:25 Neutrophils # 3.8 k/uL (1.3-7.7) 12/21/16 06:25 Lymphocytes # 0.7 k/uL (1.0-4.8) L 12/21/16 06:25 Monocytes # 0.4 k/uL (0-1.0) 12/21/16 06:25 Eosinophils # 0.0 k/uL (0-0.7) 12/21/16 06:25 Basophils # 0.0 k/uL (0-0.2) 12/21/16 06:25 Hypochromasia Moderate 12/21/16 06:25 Macrocytosis Slight 12/21/16 06:25 PT 10.7 sec (9.0-12.0) 12/19/16 22:16 INR 1.1 (<1.2) 12/19/16 22:16 APTT 23.4 sec (22.0-30.0) 12/19/16 22:16 Sodium 141 mmol/L (137-145) 12/21/16 06:25 Potassium 3.8 mmol/L (3.5-5.1) 12/21/16 06:25 Chloride 102 mmol/L (98-107) 12/21/16 06:25 Carbon Dioxide 30 mmol/L (22-30) 12/21/16 06:25 Anion Gap 9 mmol/L 12/21/16 06:25 BUN 12 mg/dL (7-17) 12/21/16 06:25 Creatinine 0.86 mg/dL (0.52-1.04) 12/21/16 06:25 Est GFR (MDRD) Af Amer >60 (>60 ml/min/1.73 sqM) 12/21/16 06:25 Est GFR (MDRD) Non-Af >60 (>60 ml/min/1.73 sqM) 12/21/16 06:25 Glucose 91 mg/dL (74-99) 12/21/16 06:25 Plasma Lactic Acid Alex 1.1 mmol/L (0.7-2.0) 12/19/16 22:16 Calcium 9.0 mg/dL (8.4-10.2) 12/21/16 06:25 Magnesium 2.2 mg/dL (1.6-2.3) 12/19/16 22:16 Total Bilirubin 0.3 mg/dL (0.2-1.3) 12/21/16 06:25 AST 27 U/L (14-36) 12/21/16 06:25 ALT 28 U/L (9-52) 12/21/16 06:25 Alkaline Phosphatase 89 U/L (38-126) 12/21/16 06:25 Total Creatine Kinase 80 U/L (30-135) 12/19/16 22:16 CK-MB (CK-2) 5.3 ng/mL (0.0-2.4) H* 12/19/16 22:16 CK-MB (CK-2) Rel Index 6.6 12/19/16 22:16 Troponin I <0.012 ng/mL (0.000-0.034) 12/19/16 22:16 NT-Pro-B Natriuret Pep 1320 pg/mL 12/19/16 22:16 Total Protein 6.1 g/dL (6.3-8.2) L 12/21/16 06:25 Albumin 3.4 g/dL (3.5-5.0) L 12/21/16 06:25 CBC & Chem 7: 12/21/16 06:25 12/21/16 06:25 Labs: Abnormal Lab Results - Last 24 Hours (Table) 12/21/16 12/21/16 Range/Units 06:25 06:25 RBC 3.37 L (3.80-5.40) m/uL Hgb 10.9 L (11.4-16.0) gm/dL MCV 103.5 H (80.0-100.0) fL Plt Count 144 L (150-450) k/uL Lymphocytes # 0.7 L (1.0-4.8) k/uL Total Protein 6.1 L (6.3-8.2) g/dL Albumin 3.4 L (3.5-5.0) g/dL Microbiology - Last 24 Hours (Table) 12/19/16 22:16 Blood Culture - Preliminary Blood No Growth after 24 hours Assessment and Plan Plan: This is a 61-year-old female patient presented with increasing dyspnea with history of stage IV lung cancer. No sign of pulmonary embolism. However, left lower extremity is positive for a DVT which may be acute. Patient does have history of a left lower extremity DVT and PE in 2002. She is currently on antibiotics in the form of Levaquin and Zosyn . Antibiotics will not be necessary. Continue supportive care. Further recommendations as patient progresses. The above dictated assessment and findings were discussed with Dr. Rodriguez. The impression and plan of care have been directed as dictated. Connie Maravilla nurse practitioner acting as scribe for Dr. Rodriguez.
--- NOTE | 2016-12-21 11:53 | ECHOF ---
Referral Reason:SOB, PE MEASUREMENTS -------- HEIGHT: 160.0 cm WEIGHT: 64.9 kg BP: 127/75 IVSd: 1.0 cm (0.6 - 1.1) LVIDd: 3.0 cm (3.9 - 5.3) LVPWd: 0.9 cm (0.6 - 1.1) IVSs: 1.3 cm LVIDs: 2.3 cm LVPWs: 1.3 cm Ao Diam: 3.0 cm (2.0 - 3.7) AV Cusp: 1.7 cm (1.5 - 2.6) LA Diam: 2.8 cm (2.7 - 3.8) MV EXCURSION: 20.022 mm (> 18.000) MV EF SLOPE: 68 mm/s (70 - 150) EPSS: 0.8 cm MV E Femi: 0.80 m/s MV DecT: 208 ms MV A Femi: 0.76 m/s MV E/A Ratio: 1.06 RAP: 5.00 mmHg RVSP: 17.25 mmHg FINDINGS -------- Sinus rhythm. This was a technically good study. The left ventricular size is normal. There is mild concentric left ventricular hypertrophy. Overa ll left ventricular systolic function is normal with, an EF between 55 - 60 %. The right ventricle is normal in size and function. The left atrium is normal in size. The right atrium is normal in size. The aortic valve is trileaflet, and appears structurally normal. No aortic stenosis or regurgitation. The mitral valve is normal. There is trace mitral regurgitation. Trace tricuspid regurgitation present. The right ventricular systolic pressure, as measured by Dopp ler, is 17.25mmHg. There is no pulmonic regurgitation present. The aortic root size is normal. Normal inferior vena cava with normal inspiratory collapse consistent with estimated right atrial pre ssure of 5 mmHg. There is a trivial pericardial effusion present. CONCLUSIONS -------- 1. Sinus rhythm. 2. This was a technically good study. 3. There is mild concentric left ventricular hypertrophy. 4. Overall left ventricular systolic function is normal with, an EF between 55 - 60 %. 5. The left atrium is normal in size. 6. The aortic valve is trileaflet, and appears structurally normal. No aortic stenosis or regurgitati on. 7. There is trace mitral regurgitation. 8. Trace tricuspid regurgitation present. 9. The right ventricular systolic pressure, as measured by Doppler, is 17.25mmHg. 10. There is no pulmonic regurgitation present. 11. The aortic root size is normal. 12. Normal inferior vena cava with normal inspiratory collapse consistent with estimated right atrial pressure of 5 mmHg. 13. There is a trivial pericardial effusion present. TRAVEL WRITER: Courtney Castro RDCS
[2016-12-21] MEDS ORDERED: MULTIVITAMINS, THERA 1 EACH TAB PO SCH (12:00)
--- NOTE | 2016-12-21 12:08 | CT ---
EXAMINATION TYPE: CT ChestAbdPelvis w con DATE OF EXAM: 12/21/2016 COMPARISON: 12/19/2016 CT chest and 10/15/2016 CT chest, abdomen, and pelvis HISTORY: 61-year-old female malignancy progress study, pneumonia and lung cancer. Prior history state s vulvar cancer as well. TECHNIQUE: Contiguous axial scanning of the chest, abdomen, and pelvis performed with IV Contrast, pa tient injected with 100 mL of Omnipaque 300. Delayed images through the kidneys were obtained. Kan l/sagittal reconstructions performed. CT DLP: 597.9 mGycm Automated exposure control for dose reduction was used. FINDINGS: CHEST: The heart is upper limits of normal in size without pericardial effusion. The aorta is normal caliber with conventional branching anatomy. Mildly enlarged caliber to the main right and left pulmonary arteries at 2.8 and 2.5 cm, respectively , suggesting underlying pulmonary arterial hypertension. Scattered nonenlarged and a few borderline sized mediastinal lymph nodes are present, largest measuri ng 1 cm along the right paratracheal region, axial image 19. This is increased from 7 mm on 10/15/2016 . Right axillary lymph node is borderline in size at 1.3 cm, increased from 10/15/2016. A right-sided ch est wall injection port is present. The catheter tip is in the lower IJV. Redemonstrated extensive interstitial opacities throughout the lungs with confluent areas of consolid ation in the perihilar bronchovascular and subpleural regions of the mid to lower lungs, some of thes e areas having masslike appearance, for example, in the lower lobes axial image 37 and 39. Overall ap pearance is unchanged from 12/19/2016 but new or markedly progressed from 10/15/2016. Staple lines john g the lingula and peripheral left base suggests prior wedge resections Small right greater than left pleural effusions are unchanged from recent prior of 12/19/2016. ABDOMEN: A 1.3 cm hypodense lesion peripheral right hepatic lobe not clearly seen on 10/15/2016. No other focal liver lesions seen. Bile duct measures 1 cm in caliber appears increased from 10/07/2016. No distal o bstructing lesion is identified. Gallbladder shows no abnormal distention. Main portal vein is patent . 1.1 cm nodularity of the left adrenal gland there is slightly increased from 9 mm on 10/15/2016. Right adrenal gland, right kidney, spleen, and mildly atrophic pancreas show no gross evidence of bow el. There is slight asymmetric left-sided pelvicaliectasis and possible filling defect in the mid left ur eter, axial image 80. No dilated small bowel, free fluid, or free air. Oral contrast progressed to the proximal sigmoid colon. No pericolonic inflammatory change seen. Right lower quadrant ileostomy with diverting urostomy is redemonstrated. Mild diffuse anasarca-type change. No mesenteric or retroperitoneal lymphadenopathy seen. Pelvis: Patient is status post cystectomy. There is presacral edema with diffuse fat stranding throughout the intrapelvic fat probably relating to posttreatment change, relatively similar to 10/15/2016 There is asymmetric edema along the left thigh and some mild strandy edema also along the deeper fasc ial planes. Bones: Sclerotic foci in the posterior iliac bones upper and lower thoracic spine, and within the lumbar spi ne, and inferior sternal body are redemonstrated. No new lesions are identified. Degenerative changes throughout the lumbar spine. IMPRESSION: 1. CONTINUED SMALL RIGHT GREATER THAN LEFT PLEURAL EFFUSIONS WITH EXTENSIVE bilateral interstitial ch anges and masslike areas of consolidation especially in the lower lungs (unchanged from 12/19/2016 but largely new from 10/15/2016). Clinical correlation recommended for possible etiologies including mult ifocal pneumonia, pulmonary edema, drug reaction, and metastatic disease. 2. A 1.3 cm right axillary and 1 cm right paratracheal lymph node are increased in size from 7 but only borderline enlarged by CT size criteria. 3. A 1.3 cm right hepatic lobe lesion was not clearly seen on 10/15/2016 and could represent new hepat ic metastasis. Osteoblastic metastases are unchanged. 4. Right lower quadrant diverting urostomy status post cystectomy. There is slight asymmetric pelvica liectasis on the left and possible filling defect in the mid left ureter, axial image 80. Correlate f or any symptoms of renal colic and with urinalysis and urine cytology. 5. Left adrenal nodule slightly increased in size at 1.1 cm versus 9 mm on 10/15/2016. 6. Status post cystectomy. Extensive intrapelvic fat stranding and presacral edema is similar and may relate to posttreatment change. 7. Asymmetric soft tissue swelling of the visualized left thigh. If indicated, lower extremity Dopple r ultrasound can exclude the possibility of DVT.
--- NOTE | 2016-12-21 13:06 | P.PN ---
Subjective Progress Note Date: 12/21/16 Principal diagnosis: Acute on chronic hypoxic respiratory failure related to extensive malignant metastasis to the lungs Mago is a 61-year-old white female patient who presented to the emergency department on 12/19/2016 at approximately 2100 with complaint of one week's worth of increasing shortness of breath, hacky cough with production of initially clear sputum that turned ayon. She does have some underlying chronic dyspnea on exertion, she wears home O2 at bedtime at 2 L per nasal cannula, but her current level of dyspnea is increased from her baseline and significantly limited her level of activity. She denies having any fevers or chills at home. 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 Bobby Powell from the [facility] yesterday in regards to CT evidence of a blood clot in her left leg and pelvis. Mago follows with Dr. Powell for her history of ovarian, cervical and vulvar cancer that was first diagnosed in [address] Chavarria. Most of her history is obtained from the patient and the patient's spouse, records were requested from the [facility] and Dr. Murguia. Patient had abnormal cervical Pap smears, underwent total abdominal hysterectomy in [address] Chavarria, during which abnormal ovarian growth was detected and removed. The pathology was later found to be malignant. 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 Around the same time in 2002 she had a pulmonary embolism and a DVT in her left leg for which she was treated with a 6 months course of Coumadin. She had also undergone radiation and chemo and finished her last round of chemo in November 2015. In February 2016 patient was referred to Dr. HENNY Henderson for her increasing shortness of breath, initially treated with antibiotics, steroids, with no improvement. Dr. Lezama performed a bronchoscopy with a biopsy, and had told the patient the pathology was positive for lung cancer. Patient subsequently got refer to the [facility] cardiothoracic surgeon Dr. Henderson we did a wedge resection which was positive for malignancy. Patient sees Dr. Murguia who has recommended continuation of chemotherapy. CT of chest on 12/19/2016 showed no evidence of pulmonary embolism, significant progression of the airspace disease compared to the last exam on 10/15/2016. Venous Doppler on 12/20/2016 was positive for reduced flow involving the left lower extremity from the superficial femoral vein. The findings could represent a component of chronic DVT. Patient is not currently on any anticoagulation. Evaluation patient is sitting up in bed, awake alert, in no acute distress. She is on 2 L, with O2 sat at 94-97%, she is afebrile, no significant cough, or sputum production noted. Lungs sounds are diminished. No wheezing, no rhonchi, no rales appreciated. A significant amount of swelling in the left lower leg, nonpitting. Patient states she has chronic swelling in her left leg related to lymphedema post extensive pelvic and vulvar resection due to history of cancers. Denies any significant discomfort at this time, states she is short of breath with exertion, is wearing her oxygen continuously compared to just at bedtime. No signs of a leukocytosis noted, no coagulopathy, no significant electrolyte abnormality. Her CK-MB was elevated at 5.3, troponin is negative, proBNP was elevated at 1320 on admission. She does complain of anterior chest wall tenderness, worse with palpation. On 12/21/2016 patient is seen in follow-up, he is going down for CT of abdomen and pelvis. She remains on continuous oxygen at 2 L per nasal cannula with O2 sat from 95-99%. She states she is able to produce some sputum, which is now yellow in color. Lung sounds are positive for coarse bibasilar crackles. Patient's left lower leg edema seems to have improved, she has kept it elevated. No significant respiratory distress noted, no wheezing, or significant chest congestion. What culture shows no growth after 24 hours. Patient has been started on Lovenox 60 mg twice a day. Echocardiogram from 04/2016 was reviewed, EF is between 55-60%, with no evidence of pulmonary hypertension or significant valvular abnormality. The results of CT chest, abdomen and pelvis be reviewed by medical oncology, awaiting their input. Objective - Vital Signs Vital signs: Vital Signs Temp 98.5 F 12/21/16 07:00 Pulse 86 12/21/16 07:00 Resp 16 12/21/16 07:00 BP 114/70 12/21/16 07:00 Pulse Ox 99 12/21/16 07:00 Intake & Output 12/20/16 12/21/16 12/21/16 18:59 06:59 18:59 Intake Total 1465 Output Total 400 600 Balance -400 865 Intake: Intake, IV Titration 875 Amount Piperacillin-Tazobactam 3 50 .375 gm In Dextrose/Water 1 50ml.bag @ 12.5 mls/hr IVPB Q8HR [facility] Rx#: [id number] Sodium Chloride 0.9% 1, 825 000 ml @ 75 mls/hr IV . [id number] [facility] Rx#:[id number] Oral 590 Output: Urine 400 600 Other: # Bowel Movements 1 - Exam GENERAL EXAM: Alert, active, comfortable in no apparent distress. HEAD: Normocephalic/atraumatic. EYES: Normal reaction of pupils, equal size. Conjunctiva pink, sclera white. NOSE: Clear with pink turbinates. THROAT: No erythema or exudates. NECK: No masses, no JVD, no thyroid enlargement, no adenopathy. CHEST: No chest wall deformity. Symmetrical expansion. Chest wall is tender to palpation. LUNGS: Equal air entry with no crackles, wheeze, rhonchi or dullness. Diminished bilaterally CVS: Regular rate and rhythm, normal S1 and S2, no gallops, no murmurs, no rubs ABDOMEN: Soft, nontender. No hepatosplenomegaly, normal bowel sounds, no guarding or rigidity. EXTREMITIES: No clubbing, no cyanosis, 2+ pulses and upper and lower extremities. 2+ nonpitting left lower leg edema, no tenderness or redness in the posterior left calf MUSCULOSKELETAL: Muscle strength and tone normal. SPINE: No scoliosis or deformity SKIN: No rashes CENTRAL NERVOUS SYSTEM: Alert and oriented 3. No focal deficits, tone is normal in all 4 extremities. PSYCHIATRIC: Alert and oriented 3. Appropriate affect. Intact judgment and insig - Labs CBC & Chem 7: 12/21/16 06:25 12/21/16 06:25 Labs: Abnormal Lab Results - Last 24 Hours (Table) 12/21/16 12/21/16 Range/Units 06:25 06:25 RBC 3.37 L (3.80-5.40) m/uL Hgb 10.9 L (11.4-16.0) gm/dL MCV 103.5 H (80.0-100.0) fL Plt Count 144 L (150-450) k/uL Lymphocytes # 0.7 L (1.0-4.8) k/uL Total Protein 6.1 L (6.3-8.2) g/dL Albumin 3.4 L (3.5-5.0) g/dL Microbiology - Last 24 Hours (Table) 12/19/16 22:16 Blood Culture - Preliminary Blood No Growth after 24 hours Assessment and Plan Plan: Assessments: #1. Acute on chronic hypoxic respiratory failure related to extensive malignant metastasis to the lungs, possibly from primary site from cervical, ovarian and vulvar cancer. There is evidence of significant progression of airspace disease related to lung metastasis on the CTA from 12/19/2016 compared to the previous CT from 10/15/2016. No evidence of pulmonary embolism. Doubt pneumonia at this time. #2. Bilateral pleural effusions with extensive pulmonary infiltrates as evidenced on CTA chest from 12/19/2016 there is thought to be related to extensive metastasis to the lungs #3. History of ovarian, cervical, and vulvar cancer, with total abdominal hysterectomy and oophorectomy, extensive vulvar resection and placement of urostomy. Status post treatment with radiation and chemotherapy, last chemotherapy completed in November 2015 #4. History of pulmonary embolism in 2002 treated with Coumadin #5. History of left leg DVT in 2002, treated with 6 month course of Coumadin #6. Lifetime nonsmoker #7. History of left leg lymphedema, related to history of extensive pelvic resection due to malignancy #8. History of anemia #9. History of rheumatoid arthritis Plan: Oxygenation remained stable on 2 L per nasal cannula, no significant chest congestion, patient does have productive cough with yellow sputum. There is some improvement noted in the edema of the left lower leg . Today we started the patient on Lovenox 60 every 12 hours for the DVT in the left leg, possibly acute. CTA chest, chest x-ray and the venous Doppler results and films were reviewed by Dr. Chavis. There is evidence of significant progression of airspace disease related to extensive lung metastasis, doubt presence of pneumonia at this time. Patient's dyspnea, and hypoxia is very likely to be attributed to the extensive metastatic process in the lungs. CT chest, abdomen and pelvis results will be reviewed by medical oncology. Awaiting their input. Further recommendations to follow. No significant pleural effusion that needs to be drained to offer symptomatic relief the patient at this time. Continue to follow, further recommendations will be offered based on the clinical progression. I performed a history & physical examination of the patient and discussed their management with my nurse practitioner, Nidia Spence. I reviewed the nurse practitioner's note and agree with the documented findings and plan of care. Lung sounds are positive for bibasilar crackles. The findings and the impression was discussed with the patient. I attest to the documentation by the nurse practitioner. Time with Patient: Less than 30
--- NOTE | 2016-12-21 14:07 | P.PN ---
Subjective Progress Note Date: 12/21/16 This is 61-year-old pleasant female patient of Dr. Maurice Greco. She recently was diagnosed to have metastatic lung carcinoma in May 14 this year after a tissue biopsy performed by Dr. Mendoza and Dr. Henderson surgeon at [facility]. He had a pulmonary nodule that comes and goes with size and repeat CAT scans were not significant for any pulmonary nodule that was identified, however with the difficulty in the diagnosis and the persistence of shortness of breath, patient was subsequently scoped by Dr. Irvin for which malignancy was identified thru bronchial washings. physicians are at a quandry as to the location of the malignancy as the CAT scan were not conclusive with her 10 month symptoms, she went to [facility] per referral from Dr. Murguia and was found to have stage 4 lung carcinoma. She received the first chemo of 6 tx last dose was 09/04/2016. 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 She also has history off of iron and cervical cancer, hypertension and hyperlipidemia, rheumatoid arthritis, chemotherapy-induced neuropathy lower extremities. She was admitted to the emergency room after she got a phone call from [facility] notifying her of her abnormal CAT scan findings that shows a clot somewhere this CAT scan was performed last August 2016, and was subsequently recommended to go to emergency room. She has shortness of breath, and chronic left lower extremity swelling. Emergency room CTA of the chest was performed that shows no evidence of pulmonary embolism, there is bilateral pleural effusion with extensive pulmonary infiltrates, this colitis since of pulmonary infiltrate in both lungs, significant progression of airspace disease compared to last exam , possibly related to inflammatory disease consider possibility of RDS. Venous Dopplers shows positive DVT, there is reduced flow in the superficial femoral vein through the proximal calf veins, findings may be represent component of acute DVT superimposed with chronic DVT 12/21: Patient has been followed by Dr. Chavis and Dr. Rodriguez. Echocardiogram reveals EF of 55-60% with no pulmonary hypertension or significant valvular abnormality. She is undergone a repeat CAT scan of the chest, abdomen and pelvis which appears to be progression or recurrence of her lung cancer. 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 She does have a follow-up appointment set up with Dr. Whittaker on December 28. Objective - Vital Signs Vital signs: Vital Signs Temp 98.5 F 12/21/16 07:00 Pulse 86 12/21/16 07:00 Resp 16 12/21/16 07:00 BP 114/70 12/21/16 07:00 Pulse Ox 99 12/21/16 07:00 Intake & Output 12/20/16 12/21/16 12/21/16 18:59 06:59 18:59 Intake Total 1465 Output Total 400 600 Balance -400 865 Intake: Intake, IV Titration 875 Amount Piperacillin-Tazobactam 3 50 .375 gm In Dextrose/Water 1 50ml.bag @ 12.5 mls/hr IVPB Q8HR [facility] Rx#: [id number] Sodium Chloride 0.9% 1, 825 000 ml @ 75 mls/hr IV . [id number] [facility] Rx#:[id number] Oral 590 Output: Urine 400 600 Other: # Bowel Movements 1 - Exam General appearance: cooperative, no acute distress - EENT Eyes: anicteric sclerae, dentition normal, normal appearance ENT: NA/AT, normal oropharynx - Neck Neck: normal ROM - Respiratory Respiratory: bilateral: CTA, negative: diminished, dullness, rales - Cardiovascular Rhythm: regular Heart sounds: normal: S1, S2 Abnormal Heart Sounds: no systolic murmur, no diastolic murmur, no rub, no S3 Gallop, no S4 Gallop, no click, no other - Gastrointestinal General gastrointestinal: normal bowel sounds, soft - Integumentary Integumentary: decreased turgor, normal - Neurologic Neurologic: CNII-XII intact - Musculoskeletal Musculoskeletal: gait normal, strength equal bilaterally - Psychiatric Psychiatric: A&O x's 3, appropriate affect, intact judgment & insight - Labs CBC & Chem 7: 12/21/16 06:25 12/21/16 06:25 Labs: Abnormal Lab Results - Last 24 Hours (Table) 12/21/16 12/21/16 Range/Units 06:25 06:25 RBC 3.37 L (3.80-5.40) m/uL Hgb 10.9 L (11.4-16.0) gm/dL MCV 103.5 H (80.0-100.0) fL Plt Count 144 L (150-450) k/uL Lymphocytes # 0.7 L (1.0-4.8) k/uL Total Protein 6.1 L (6.3-8.2) g/dL Albumin 3.4 L (3.5-5.0) g/dL Microbiology - Last 24 Hours (Table) 12/19/16 22:16 Blood Culture - Preliminary Blood No Growth after 24 hours Assessment and Plan Plan: 1. Bilateral pulmonary infiltrates representing possibility of postobstructive pneumonia but most likely worsening of pulmonary infiltrates from stage IV lung carcinoma however clinically she does not present this way, however in view of her immunocompromised state and CAT scan reports reviewed. She is currently on Levaquin and Zosyn and awaiting Dr. Rodriguez decision whether she needs antibiotics. She has follow-up appointment set for next Saturday with Dr. Whittaker. 2. Abnormal CAT scan in August 2016 with suspicion off pulmonary emboli and DVT left side, patient was started on Lovenox 60 mg every 12 hours with transition to oral medications oncology following. PE has been ruled out by Dr. Chavis. 3. Chronic hypoxemic respiratory failure currently requiring O2 at 2 , at home are maintained occasions supplementation to keep pulse ox over 90%. Echocardiogram to be done to evaluate for right ventricular strain and shortness of breath or confusion 3. Chemotherapy induced neuropathy on gabapentin 600 mg 3 times a day no changes made 4 Hypertension on losartan HCTZ 50/12.5 no changes made continue atenolol 50 mg at bedtime 5 Hyperlipidemia on Vytorin 10/20 daily 6 Left lower extremity DVT. Patient will be transitioned from Lovenox to Xarelto. 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 7 GI prophylaxis 8 DVT prophylaxis currently on Lovenox transitioned to Xarelto Discharge plan: Home tomorrow Impression and plan of care have been directed as dictated by the signing physician. Connie Maravilla nurse practitioner acting as scribe for signing physician.
[2016-12-21 14:56] VITALS: BP 115/62; PULSE 92; TEMP 98.1
[2016-12-21 15:22] VITALS: RESP 25
[2016-12-21] MEDS: Acetaminophen-Codeine 300-30mg TAB PO PRN (16:13)
--- NOTE | 2016-12-21 16:40 | P.PN ---
Subjective Progress Note Date: 12/21/16 The patient continues to be short of breath. She is reasonably comfortable at rest on 2 L of oxygen but get short of breath quickly with exertion such as going to the bathroom. She denies any significant pain at this time. Objective - Vital Signs Vital signs: Vital Signs Temp 98.1 F 12/21/16 14:55 Pulse 92 12/21/16 14:55 Resp 25 H 12/21/16 15:22 BP 115/62 12/21/16 14:55 Pulse Ox 99 12/21/16 07:00 Intake & Output 12/20/16 12/21/16 12/21/16 18:59 06:59 18:59 Intake Total 1465 2210 Output Total 400 600 Balance -174 347 1858 Intake: Intake, IV Titration 875 650 Amount Piperacillin-Tazobactam 3 50 50 .375 gm In Dextrose/Water 1 50ml.bag @ 12.5 mls/hr IVPB Q8HR [facility] Rx#: [id number] Sodium Chloride 0.9% 1, 825 600 000 ml @ 75 mls/hr IV . [id number] [facility] Rx#:[id number] Oral 590 1560 Output: Urine 400 600 Other: # Bowel Movements 1 - Constitutional General appearance: Present: no acute distress - EENT Eyes: Present: EOMI, PERRLA ENT: Present: hearing grossly normal, normal oropharynx - Respiratory Respiratory: bilateral: diminished - Cardiovascular Rhythm: regular Heart sounds: normal: S1, S2 - Gastrointestinal General gastrointestinal: Present: normal bowel sounds, soft - Integumentary Integumentary: Present: normal - Neurologic Neurologic: Present: CNII-XII intact - Musculoskeletal Musculoskeletal: Present: generalized weakness - Labs CBC & Chem 7: 12/21/16 06:25 12/21/16 06:25 Labs: Abnormal Lab Results - Last 24 Hours (Table) 12/21/16 12/21/16 Range/Units 06:25 06:25 RBC 3.37 L (3.80-5.40) m/uL Hgb 10.9 L (11.4-16.0) gm/dL MCV 103.5 H (80.0-100.0) fL Plt Count 144 L (150-450) k/uL Lymphocytes # 0.7 L (1.0-4.8) k/uL Total Protein 6.1 L (6.3-8.2) g/dL Albumin 3.4 L (3.5-5.0) g/dL Microbiology - Last 24 Hours (Table) 12/19/16 22:16 Blood Culture - Preliminary Blood No Growth after 24 hours - Imaging and Cardiology CT scan - abdomen: report reviewed CT scan - chest: report reviewed CT scan - pelvis: report reviewed Assessment and Plan (1) Gynecologic malignancy Narrative/Plan: The patient has known metastatic 1 were cancer, and was recently on treatment with carboplatin, Taxol and Avastin. Based on her symptoms, there was concern for progression. Therefore outpatient CT chest abdomen and pelvis was performed here. This appears to show progression, especially in bilateral lung parenchyma with marked increase in confluent masslike opacities. There also appeared to be some progression in a mediastinal node, as well as possibly in in a liver lesion On the results, and implications were discussed in detail with the patient and her . This appears to represent progressive disease within a fairly short period of time after aggressive first-line chemotherapy combination. They were advised, that in this situation, there are no standard second line therapy with proven good efficacy. According to Dr. Whittaker, comfort care would be a reasonable option in case of progression. The same, and rationale for that were discussed in detail with them. They had various questions about possible second line therapies, as well as prognosis without treatment, and logistics regarding hospice. These were answered to the best of my ability. They do want to follow-up with Dr. Whittaker in the office, and will do so as an outpatient to discuss the above options. Current Visit: Yes Status: Acute Priority: High Code(s): C57.9 - MALIGNANT NEOPLASM OF FEMALE GENITAL ORGAN, UNSPECIFIED SNOMED Code(s): 168443700 (2) Difficulty breathing Narrative/Plan: Based on the computed tomography scan appearance and her clinical presentation , pneumonia has not been suspected by pulmonary medicine or ID. Case has been discussed with the ID service. IV antibiotics will be stopped. Her symptoms are felt to be due to progression of malignancy in the lungs Current Visit: Yes Status: Acute Priority: High Code(s): R06.89 - OTHER ABNORMALITIES OF BREATHING SNOMED Code(s): 294612553 (3) DVT (deep venous thrombosis) Narrative/Plan: The patient is on Xarelto and can be discharged on the same. Current Visit: Yes Status: Acute Priority: High Code(s): I82.409 - ACUTE EMBOLISM AND THOMBOS UNSP DEEP VN UNSP LOWER EXTREMITY SNOMED Code(s): 697266489 Plan: The patient is stable at rest on 2 L of oxygen. She has home oxygen, up to 5 L. Therefore from our standpoint she can be discharged home if okay with the admitting service and other consultants. She will follow-up with Dr. Whittaker in the office, according to her previously scheduled appointment.
[2016-12-21] MEDS ORDERED: RIVAROXABAN 15 MG TAB PO SCH (17:30)
--- NOTE | 2016-12-21 21:37 | P.CON ---
Consult Note - . 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 Pap smears repeatedly came back with cancer despite treatment with a topical chemotherapy. She eventually had laser treatment to the vagina for which she didn't have repeat cancer found. There was 2 procedures to shorten the vagina and she seemed to do well for a time and 2 2013 when she noticed a pimple in the vaginal area which was diagnosed with cancer and patient ended up with urostomy. She did well for a couple years and then noticed another pimple which was diagnosed as cancer and her vagina and part of the vulva was removed and then about 10 months later she was again diagnosed with cancer and underwent a vulvectomy and chemotherapy treatment. One year ago she was diagnosed with left lower extremity lymphedema. She gives history that in the fall of 2015 she started having difficulty breathing for which she follows with Dr. HENNY Henderson and underwent [address] Lezama. She initially was told wrong washings were positive for lung cancer however the biopsy was negative. She saw Dr. Murguia and he was doubtful that she had cancer at that time but due to nodules found in CAT scan she went to [facility] and had a needle biopsy done and the nodules could not be located. She continue to follow with Dr. HENNY Henderson and was on nebulizer treatments and steroids and follow-up with him every couple weeks. Finally by [place] time of 2015 he sent her to [facility] and she had an appointment in February 2016. They did a surgical lung biopsy performed by Dr. Henderson at [facility] on the left lung around the end of March and at the same time she developed a pleural effusion on the right side for which 1 L was drained. She was discharged home and shortly after that the surgeon, Dr. Henderson, and [facility] called and stated she had stage IV lung cancer and surgery was not an option. A few weeks later, she was seen at [facility] as she had fluid-filled on her right side and a drain was permanently placed which lasted for 5 months until drainage had stopped and this was removed in October. Patient started chemotherapy at the end of April. 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 Chemotherapy ended September 04 and she completed 6 treatments one dose every 21 days. During that time, her pulmonary doctor at [facility], Dr. Norton, placed her on oxygen at night and she was gradually able to be weaned off this and has not been using oxygen for a couple months. For the past week she has had increased shortness of breath at night and has started using oxygen again at night and during the day as needed such as after showering. She underwent a CAT scan of the chest abdomen and pelvis with contrast done on October 15 at [facility] ordered by Dr. Whittaker which revealed multiple sclerotic type metastasis through the lumbar spine with some milder areas within the thoracic spine and greater in the lower thoracic spine. Small right and minimal left pleural effusion. Drainage catheter in the right pleural cavity. Postsurgical changes with urostomy right lower quadrant. Patient took the disc of this CAT scan to her physician at [facility] on October 26 but they were unable to get to work in the computer at that time. She called back several times to get a report from them and did not hear anything until Saturday at 8 PM, [place] [facility] called and suspected a blood clot and recommended that she come into the hospital for evaluation. In the meantime she had been seen by Dr. Whittaker 3 weeks ago and recommended maintenance chemotherapy if her physician, Dr. Powell, at [facility] who seemed to agree with this plan. Patient was seen in the emergency center. She was afebrile with white count of 5.1. Ultrasound of the left lower extremity showed reduced flow from the superficial femoral vein through the proximal calf veins compatible with DVT. Findings may represent a component of chronic DVT. Superimposed acute DVT in the differential. Patient does have history of a left lower extremity DVT and pulmonary embolism in 2002. CTA of the chest showed no evidence of pulmonary embolism. Bilateral pleural effusions with extensive pulmonary infiltrates. There is coalescent pulmonary infiltrate in both lungs. There is significant progression of the airspace disease compared to last exam of 10/15/2016. This probably relates to inflammatory disease. Continue possibility of RDS. Patient has been seen by Dr. Chavis and didn't compare results of CAT scans from September to present with concern for return of cancer since chemotherapy. No definite pulmonary embolism however. Patient is going for a repeat CAT scan today with contrast. She is currently on antibiotics in the form of Levaquin and Zosyn. Please see the consult note as dictated by [employer] Mrs. Connie Maravilla. The patients CT scan has now been completed and reveals evidence that the metastatic disease has increased, without evidence of pulmonary embolism. Also no evidence of pneumonia at this time. Will discontinue antibiotic therapy and agree for discharge to home. She will follow-up with the oncologist in the outpatient setting for the next set of plans. Possibility of further chemotherapy or transitioning to a comfort care process at that time. I agree with evaluation, assessment and tim as dictated by nurse practitioner Mrs. Connie Maravilla.
[2016-12-22] MEDS ORDERED: PANTOPRAZOLE 40 MG TABLET PO SCH (07:30)
--- NOTE | 2016-12-27 09:32 | P.DS ---
Providers Date of admission: 12/19/16 23:48 Expected date of discharge: 12/21/16 Attending physician: Trinh Conroy Consults: 12/19/16 23:49 Consult Physician Urgent Consulting Provider: Leta Chavis Consult Reason/Comments: Healthcare associated pneumonia, pleural effusion, history of cancer Do you want consulting provider notified?: Yes, Notify in am Consult Physician Urgent Consulting Provider: Manuel Whittaker Consult Reason/Comments: Pleural effusion, history of stage IV cancer Do you want consulting provider notified?: Yes, Notify in am 12/20/16 14:13 Consult Physician Routine Consulting Provider: Kalia Rodriguez Consult Reason/Comments: immunocompromised, bilat pneumonia Do you want consulting provider notified?: Yes [facility] Course: This is 61-year-old pleasant female patient of Dr. Maurice rGeco. She recently was diagnosed to have metastatic lung carcinoma in May 14 this year after a tissue biopsy performed by Dr. Mendoza and Dr. Henderson surgeon at [facility]. He had a pulmonary nodule that comes and goes with size and repeat CAT scans were not significant for any pulmonary nodule that was identified, however with the difficulty in the diagnosis and the persistence of shortness of breath, patient was subsequently scoped by Dr. Irvin for which malignancy was identified thru bronchial washings. physicians are at a quandry as to the location of the malignancy as the CAT scan were not conclusive with her 10 month symptoms, she went to [facility] per referral from Dr. Murguia and was found to have stage 4 lung carcinoma. She received the first chemo of 6 tx last dose was 09/04/2016. 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 She also has history off of iron and cervical cancer, hypertension and hyperlipidemia, rheumatoid arthritis, chemotherapy-induced neuropathy lower extremities. She was admitted to the emergency room after she got a phone call from [facility] notifying her of her abnormal CAT scan findings that shows a clot somewhere this CAT scan was performed last August 2016, and was subsequently recommended to go to emergency room. She has shortness of breath, and chronic left lower extremity swelling. Emergency room CTA of the chest was performed that shows no evidence of pulmonary embolism, there is bilateral pleural effusion with extensive pulmonary infiltrates, this colitis since of pulmonary infiltrate in both lungs, significant progression of airspace disease compared to last exam , possibly related to inflammatory disease consider possibility of RDS. Venous Dopplers shows positive DVT, there is reduced flow in the superficial femoral vein through the proximal calf veins, findings may be represent component of acute DVT superimposed with chronic DVT 12/21: Patient has been followed by Dr. Chavis and Dr. Rodriguez. Echocardiogram reveals EF of 55-60% with no pulmonary hypertension or significant valvular abnormality. She is undergone a repeat CAT scan of the chest, abdomen and pelvis which appears to be progression or recurrence of her lung cancer. Regarding the left lower extremity DVT, patient will be transitioned over to Xarelto and upper caser to check for coverage and anticipate discharge home tomorrow most likely. She does have a follow-up appointment set up with Dr. Whittaker on Saturday, December 28. Dr. Rodriguez evaluated the patient with no evidence of pneumonia at this time. Antibiotics were discontinued. Patient was discharged home in stable condition. Discharge diagnoses: 1. Bilateral pulmonary infiltrates representing worsening of pulmonary infiltrates from stage IV lung carcinoma 2. Abnormal CAT scan in August 2016 with suspicion of pulmonary emboli and DVT left side, patient was started on Lovenox 60 mg every 12 hours with transition to oral medications oncology following. PE has been ruled out by Dr. Chavis. 3. Chronic hypoxemic respiratory failure 3. Chemotherapy induced neuropathy 4 Hypertension 5 Hyperlipidemia 6 Left lower extremity DVT. Discharge plan: Home Impression and plan of care have been directed as dictated by the signing physician. Connie Maravilla nurse practitioner acting as scribe for signing physician. Patient Condition at Discharge: Stable Plan - Discharge Summary New Discharge Prescriptions: New Rivaroxaban [Xarelto] 20 mg PO DAILY #30 tab Rivaroxaban [Xarelto] 15 mg PO BID-W/MEALS #40 tab Continue Multivitamins, Thera [Multivitamin (formulary)] 1 tab PO DAILY Losartan/Hydrochlorothiazide [Hyzaar 50-12.5 Tablet] 1 tab PO DAILY LORazepam [Ativan] 0.5 - 1 mg PO Q4-6H PRN PRN Reason: sleep Ezetimibe/Simvastatin [Vytorin 10-20 mg Tablet] 1 tab PO HS Atenolol [Tenormin] 50 mg PO HS Acetaminophen-Codeine 300-30mg [Tylenol w/codeine #3] 1 - 2 tab PO Q4-6H PRN PRN Reason: Pain Magnesium(Unknown Dose) 1 tab PO BID Zinc 50 mg PO DAILY Gabapentin [Neurontin] 600 mg PO TID Vitamin B Complex 1 cap PO BID Discharge Medication List Acetaminophen-Codeine 300-30mg [Tylenol w/codeine #3] 1 - 2 tab PO Q4-6H PRN [History] Atenolol [Tenormin] 50 mg PO HS 07/04/16 [History] Ezetimibe/Simvastatin [Vytorin 10-20 mg Tablet] 1 tab PO HS 07/04/16 [History] LORazepam [Ativan] 0.5 - 1 mg PO Q4-6H PRN 07/04/16 [History] Losartan/Hydrochlorothiazide [Hyzaar 50-12.5 Tablet] 1 tab PO DAILY 07/04/16 [ History] Multivitamins, Thera [Multivitamin (formulary)] 1 tab PO DAILY 07/04/16 [History ] Gabapentin [Neurontin] 600 mg PO TID 12/19/16 [History] Magnesium(Unknown Dose) 1 tab PO BID 12/19/16 [History] Vitamin B Complex 1 cap PO BID 12/19/16 [History] Zinc 50 mg PO DAILY 12/19/16 [History] Rivaroxaban [Xarelto] 15 mg PO BID-W/MEALS #40 tab 12/21/16 [Rx] Rivaroxaban [Xarelto] 20 mg PO DAILY #30 tab 12/21/16 [Rx] Follow up Appointment(s)/Referral(s): Inder Greco MD [Primary Care Provider] - 1-2 days Manuel Whittaker MD [STAFF PHYSICIAN] - 1 Week Discharge Disposition: HOME SELF-CARE
== END 2016-12-21 18:25 | disposition home or self-care (01) | DRG 180 ==
LOC: EC 20:50 → 5ONC 23:48
PROVIDERS: ADMIT Family Medicine; ATTEND Family Medicine
DX: C78.00 Secondary malignant neoplasm of unspecified lung (principal); J18.9 Pneumonia, unspecified organism; J96.21 Acute and chronic respiratory failure with hypoxia; I82.402 Acute embolism and thrombosis of unspecified deep veins of left lower extremity; J90 Pleural effusion, not elsewhere classified; I10 Essential (primary) hypertension; G62.0 Drug-induced polyneuropathy; E78.5 Hyperlipidemia, unspecified; I89.0 Lymphedema, not elsewhere classified; Z80.3 Family history of malignant neoplasm of breast; Z82.49 Family history of ischemic heart disease and other diseases of the circulatory system; Z85.118 Personal history of other malignant neoplasm of bronchus and lung; Z85.41 Personal history of malignant neoplasm of cervix uteri; Z85.44 Personal history of malignant neoplasm of other female genital organs; M06.9 Rheumatoid arthritis, unspecified; T45.1X5A Adverse effect of antineoplastic and immunosuppressive drugs, initial encounter; Y95 Nosocomial condition; Z79.01 Long term (current) use of anticoagulants; Z79.899 Other long term (current) drug therapy; Z86.711 Personal history of pulmonary embolism; Z86.718 Personal history of other venous thrombosis and embolism; Z90.710 Acquired absence of both cervix and uterus; Z92.3 Personal history of irradiation; Z99.81 Dependence on supplemental oxygen
CPT/HCPCS: 36415; 71260; 71275; 74177; 80053; 82550; 82553; 83605; 83735; 83880; 84484; 85025; 85610; 85730; 87040; 87070; 87205; 93005; 93306; 96360; 99285